=== PATIENT | male | born 1970 | race Caucasian/White ===

== ENCOUNTER 2023-12-17 20:55 | Inpatient (IN) | payer OTHER, SELFPAY ==
[2023-12-17 21:24] VITALS: BMI 19.1
[2023-12-17 21:26] VITALS: BP 159/97; PULSE 70; RESP 18; TEMP 36.9; O2SAT 97
[2023-12-17] MEDS: Gabapentin 600 MG TABLET PO (23:35)
[2023-12-17] MEDS: traZODone HCL 100 MG TABLET 300 MG PO (23:36)
[2023-12-17] MEDS: LORazepam 1 MG TABLET PO (23:36)
--- NOTE | 2023-12-18 03:25 | PC.ADMIT ---
Pt is a 53 year old male admitted to the unit after being transferred from [facility]. He arrived on the unit at 2109. Legal status: CV. Medical issues: pt denies. Substance use: pt reports daily alcohol use, 12 beers and a sleeve of nips, last drink was 12/15. He reports a long history of alcohol use, as well as detox admissions. Pt does report a history of withdrawal symptoms, but denies seizures. He also reports marijuana use, ?a couple of bowls?, approx. every other day with last use also being on . 12/15. Pt reports a history of cocaine use, but states he has not used in approx. 2 years. Precipitant: Pt reports that he has been feeling very depressed and anxious, and while intoxicated he tied the cord from his razor around his neck in an attempt to strangle himself and end his life. Per crisis eval, pt reported that he did lose consciousness. Pt?s [id number] called 911 to do a well-being check and he was found unconscious on his bathroom floor. Pt?s BAL upon arrival to the ED was 255, urine OB[place]ON was negative. Crisis eval stated that pt had also overtaken his prescription psychiatric meds while drinking alcohol prior to this incident; pt did not report this to TW. During admission assessment pt was pleasant and cooperative, appeared to be anxious and restless; pt stated that he felt that he was having some withdrawal symptoms. He stated that the attempt was impulsive, and he is glad that he was found and brought to the hospital. Pt does not identify any precipitant or trigger to his high levels of depression, stating that he has been feeling this way for some time. He denies any current or history of AH/VH, thought process logical and organized with no apparent evidence of psychosis. Denied any appetite disturbance, however did acknowledge issues with sleeping, both falling and staying asleep. Pt denied any SI/HI or self-harming thoughts at time of admission, agreed to seek out staff if needed. Skin check completed and appeared intact. Medications verified with pharmacy and patient, who reported being compliant with meds, however per pharmacy pt has not picked up meds since November and has some already filled at the pharmacy waiting to be picked up. Provider was notified of admission and orders obtained. Pt is on a CIWA q4 hr for alcohol withdrawal and prn ativan as appropriate per CIWA scores. Pt to remain on 5 min safety checks at this time.?
[2023-12-18 07:30] VITALS: BP 116/77; PULSE 63; RESP 14; TEMP 36.4; O2SAT 92
[2023-12-18 08:54] LABS: Estimated Average Glucose 82 mg/dL; Hemoglobin A1c % 4.5 % (<6.0)
[2023-12-18 09:08] LABS: Cholesterol 173 mg/dL (<200); HDL Cholesterol 73 mg/dL (>40); LDL Cholesterol Calculated 78 mg/dL (<100); Triglycerides 113 mg/dL (<150)
[2023-12-18 09:24] LABS: Free T4 (Free Thyroxine) 0.86 ng/dL (0.71-1.85); Thyroid Stimulating Hormone 1.63 uIU/mL (0.32-4.0)
[2023-12-18 09:37] LABS: Folate 7.9 ng/mL (> or = 4.0); Vitamin B12 305 pg/mL (200-900)
[2023-12-18] MEDS: buPROPion HCl XL 300 MG TAB.ER.24H PO (09:53)
[2023-12-18] MEDS: Multivitamin TABLET 1 TAB PO (09:53)
[2023-12-18] MEDS: Thiamine HCL 100 MG TABLET PO (09:54)
[2023-12-18] MEDS: Folic Acid 1 MG TABLET PO (09:54)
[2023-12-18] MEDS: Gabapentin 600 MG TABLET PO ×3 (09:54→22:57)
[2023-12-18] MEDS: FLUoxetine HCl 20 MG CAPSULE 40 MG PO (09:54)
[2023-12-18] MEDS: LORazepam 1 MG TABLET PO ×2 (09:57→21:24)
--- NOTE | 2023-12-18 10:22 | P.CONHOSP_ITS ---
History of Present Illness Data of Consult Service Date: 12/18/23 Primary Care Provider: Unknown Physician HPI Reason for consult: Medical H and P This is a 53-year-old male with pertinent history of cocaine use disorder, alcohol use disorder who was admitted to inpatient psych from [facility] after suicidal attempt. Patient states his last drink was Friday and he is still having symptoms of alcohol withdrawal including anxiety and tremors. No hallucinations. Patient denies any significant past medical history apart from mood disorder. His last cocaine use was 2 years ago. No chest pain, dyspnea, shortness of breath or any other complaints at this time. Review of Systems Constitutional: Constitutional: Reports no additional constitutional complaints Cardiovascular: Cardiovascular: Reports no additional cardiovascular complaints Respiratory: Respiratory: Reports no additional respiratory complaints Gastrointestinal: Gastrointestinal: Reports no additional gastrointestinal complaints Genitourinary: Genitourinary: Reports no additional male genitourinary complaints Neurologic: Reports tremor(s) Psychiatric: Psychiatric: Reports anxiety PMFSH Medical History Mood disorder Alcohol use disorder Pertinent family history: No family history of early CAD Social History Household Members: None Housing: Apartment Do you presently have visiting nurse or other home services: No Patient Tobacco Use Status: Current everyday Tobacco user Tobacco use type: Cigarette Cigarette Packs Per Day: 0.5 Cigarettes Per Day: 10.0 Smoked in Last 30 Days: Yes Patient Interested in Nicotine Replacement: Yes (lozenge) Patient Given Instructions on How to Stop Smoking: No Use of substances other than those prescribed or required for medical reasons: Yes Substance Use Type: Marijuana Substance Use Frequency: Daily Last Used Substance: Days (ago) Last Used Substance Other:: 12/16/2023 Currently Displaying Signs/Symptoms of Drug Intoxication Withdrawal: No (pt reports using approx. every other day ) Any prior treatment program specific to substance use: Yes Have you been hit, kicked, punched, or otherwise hurt by someone within the past year? If so, by whom?: No Do you feel safe in your current relationship?: No Current Relationship Is there a partner from a previous relationship who is making you feel unsafe now?: No Are you made to feel afraid or neglected: No Spiritual Healthcare Practices: none identified Pent[employer]ostal Healthcare Practices: none identified Cultural Healthcare Practices: none identified Advance Directives: No Advance Directives Information Provided: No Advance Directives on File: No Recently lost weight without trying: Unsure Eating poorly because of decreased appetite: No Nutrition Risks: No Nutritional Risk Poor oral hygiene: Yes Meds Allergies Allergy/AdvReac Type Severity Reaction Status Date / Time No Known Allergies Allergy Verified 12/18/23 00:17 Active Medications: Current Medications Acetaminophen (Acetaminophen 325 Mg Tablet) 650 mg PO Q6H PRN PRN Reason: Headache/Pain Mild Scale (1-3) Al Hydroxide/Mg Hydroxide (Magnesium Hydrox/Alum Hydrox 30 Ml Oral.Susp) 30 ml PO Q6H PRN PRN Reason: Heartburn/Nausea Bupropion HCl (Bupropion Hcl Xl 300 Mg Tab.Er.24h) 300 mg PO DAILY [facility] Last Admin: 12/18/23 09:53 Dose: 300 mg Fluoxetine HCl (Fluoxetine Hcl 20 Mg Capsule) 40 mg PO DAILY [facility] Last Admin: 12/18/23 09:54 Dose: 40 mg Folic Acid (Folic Acid 1 Mg Tablet) 1 mg PO DAILY [facility] Last Admin: 12/18/23 09:54 Dose: 1 mg Gabapentin (Gabapentin 600 Mg Tablet) 600 mg PO TID [facility] Last Admin: 12/18/23 09:54 Dose: 600 mg Hydroxyzine HCl (Hydroxyzine Hcl 25 Mg Tablet) 25 mg PO Q6H PRN PRN Reason: Anxiety Lorazepam (Lorazepam 1 Mg Tablet) 1 mg PO Q2H PRN PRN Reason: CIWA 6-10 Last Admin: 12/18/23 09:57 Dose: 1 mg Lorazepam (Lorazepam 1 Mg Tablet) 2 mg PO Q2H PRN PRN Reason: CIWA 11-15 Magnesium Hydroxide (Milk Of Magnesia 30 Ml Oral.Susp) 30 ml PO DAILY PRN PRN Reason: Constipation Multivitamins/Vitamin C (Multivitamin Tablet) 1 tab PO DAILY [facility] Last Admin: 12/18/23 09:53 Dose: 1 tab Nicotine (Nicotine 21 Mg Patch.Td24) 21 mg TRANSDERMA DAILY PRN PRN Reason: Nicotine Cravings Nicotine Polacrilex (Nicotine Polacrilex 2 Mg Gum) 4 mg BUCCAL Q2H PRN PRN Reason: Nicotine Cravings Thiamine HCl (Thiamine Hcl 100 Mg Tablet) 100 mg PO DAILY [facility] Last Admin: 12/18/23 09:54 Dose: 100 mg Trazodone HCl (Trazodone Hcl 100 Mg Tablet) 300 mg PO BEDTIME [facility] Last Admin: 12/17/23 23:36 Dose: 300 mg Home Medications ?Medication ?Instructions ?Recorded ?Confirmed ?Last Taken ?Type acamprosate 333 mg tablet,delayed 666 mg PO TID 12/17/23 12/17/23 Unknown History release bupropion HCl 300 mg 24 hr tablet, 300 mg PO DAILY 12/17/23 12/17/23 Unknown History extended release fluoxetine 20 mg capsule 40 mg PO DAILY 12/17/23 12/17/23 Unknown History gabapentin 600 mg tablet 600 mg PO TID 12/17/23 12/17/23 Unknown History trazodone 300 mg tablet 300 mg PO BEDTIME 12/17/23 12/17/23 12/16/23 History Physical Exam Vital Signs and Narrative: Vital Signs: Last Vital Signs Temp 97.5 F 12/18/23 07:30 Pulse 63 12/18/23 07:30 Resp 14 12/18/23 07:30 BP 116/77 12/18/23 07:30 Pulse Ox 92 12/18/23 07:30 O2 Del Method Room Air 12/18/23 07:30 BMI result Body Mass Index 19.1 Middle-aged male lying in bed in no distress Neck supple, no JVD Regular rate and rhythm, S1-S2 heard Regular breath sounds bilaterally, no wheezing or crackles appreciated Abdomen soft nontender, no guarding, no rigidity Patient is awake, alert and oriented to self, place, time and person ; no focal motor deficit Psych: Anxious No pedal edema Results Labs Labs: Laboratory Results - last 24 hr 12/18/23 08:27 Estimat Average Glucose 82 Hemoglobin A1c % 4.5 Magnesium 2.0 Triglycerides 113 Cholesterol 173 LDL Cholesterol, Calc 78 HDL Cholesterol 73 Vitamin B12 305 Folate 7.9 TSH 1.63 Free T4 0.86 Assessment and Plan (1) Alcohol use disorder: Status: Acute (2) Mood disorder: Status: Acute Plan This is a 53-year-old male with pertinent history of cocaine use disorder, alcohol use disorder who was admitted to inpatient psych from [facility] after suicidal attempt. #. Alcohol use disorder with concerns for withdrawal: Initiating phenobarb protocol. Is on thiamine and folic acid. Monitor CIWA #. Mood disorder: Continue home mood stabilizers. Optimization as per psych Patient is medically stable. Will sign off. Please call if we can help
[2023-12-18] MEDS: PHENobarbitaL 30 MG TABLET 120 MG PO (12:20)
--- NOTE | 2023-12-18 13:55 | HO.PSYADMNOT ---
HPI Date of Service: 12/18/23 Chief Complaint: unspec depressive dis, unspec. alcohol dis. Sources of Information: patient interviewed, chart reviewed and crisis/core team assessment reviewed HPI Subjective Notes: Samson Warning and Conditional Voluntary Narrative: Patient is a 53 year old male with hx of MDD, alcohol use d/o, and cocaine use d/o who presented to [facility] via ambulance d/t suicidal gesture secondary to overtaking his prescribed psychiatric medications, drinking alcohol and tying a cord around hi neck until he became unconscious. Per crisis report, patient's sister called for a wellness check. Upon arrival Sosa was found unconscious in his bathroom BAL to the ED was 255 on 12/16/23, patient did not require medical intervention. During crisis evaluation patient presented calm and cooperative and insightful regarding his need for recovery. Patient reported passive suicide ideation with no plan. This is patient's 1st inpatient psychiatric admission. Patient reports he has been drinking since the age of 13. He also reports past cocaine and heroin use. Utox positive for cannabinoids and alcohol. Patient is being evicted from his apartment on December 22 2023. During admission assessment, pt presents alert, oriented, calm and cooperative. Pt reports feeling depressed ; pt stated, I tried to commit suicide when I was drinking. Life sucks right now. I'm unemployed. I have no place to go. I got evicted from my apartment and I can't afford rent. I was drinking and felt good then I just wanted to end the cycle . Pt reports he is medication compliant and he feels like my meds help me but alcohol is the problem . Pt denies SI/HI/VH/AH. Pt reports he would like a referral to a substance abuse program; pt stated, I went to [facility] two years ago and I'd like to try to get into there again . Pt reports he began drinking daily a month ago (12 pack of beer and a sleeve a nips daily) d/t boredom but was sober for 9 months prior by just stopping cold turkey . pt denies hx of withdrawal seizures. Pt reports hx of cocaine use but has not used in 2 years; smoke marijuana daily. Pt reports this is his first inpatient psychiatric hospitalization; he reports he has been to detox 3 times; last detox was 2 years ago. Past Psychiatric History: 1st inpatient psychiatric admission; states he overdosed on his prescription medication 10 years ago but did not receive medical treatment. 3 detox admissions last one was 2 years ago. does not have a therapist outpatient prescriber: Ramiro Ramos NP Medical Evaluation Reviewed: Yes [facility] Medical History Mood disorder Alcohol use disorder Family History: denies Social History: Homeless, single, no children, finished 11th grade (did not obtain GED), unemployed. Substance History: hx of cocaine and heroin use. last used 2 years ago. Smokes marijuana daily. Drinking alcohol daily(12 pack of beer and sleeve of nips) for past month; was sober for 9 months prior. Trauma History: denies Diagnostics Vital Signs (24Hr): Vital Signs - 24 hr 12/17/23 21:26 12/18/23 07:30 Temperature 98.5 F 97.5 F Pulse Rate 70 63 Respiratory Rate 18 14 Blood Pressure 159/97 H 116/77 Pulse Oximetry 97 92 Oxygen Delivery Method Room Air Room Air BMI result Body Mass Index 19.1 Labs Labs: Laboratory Results - last 48 hr 12/18/23 08:27 Estimat Average Glucose 82 Hemoglobin A1c % 4.5 Magnesium 2.0 Triglycerides 113 Cholesterol 173 LDL Cholesterol, Calc 78 HDL Cholesterol 73 Vitamin B12 305 Folate 7.9 TSH 1.63 Free T4 0.86 Meds/Allergies Meds Home Medications ?Medication ?Instructions ?Recorded ?Confirmed ?Type acamprosate 333 mg tablet,delayed 666 mg PO TID 12/17/23 12/17/23 History release bupropion HCl 300 mg 24 hr tablet, 300 mg PO DAILY 12/17/23 12/17/23 History extended release fluoxetine 20 mg capsule 40 mg PO DAILY 12/17/23 12/17/23 History gabapentin 600 mg tablet 600 mg PO TID 12/17/23 12/17/23 History trazodone 300 mg tablet 300 mg PO BEDTIME 12/17/23 12/17/23 History Allergies Allergies Allergy/AdvReac Type Severity Reaction Status Date / Time No Known Allergies Allergy Verified 12/18/23 00:17 Mental Status Exam Mental Status Exam Narrative: Pt is alert and oriented; behavior is cooperative and calm; dressed in casual attire; mood is described as depressed ; eye contact appropriate; Speech is normal rate, volume and not pressured; thought process is organized and goal directed; Thought content is on tx; otherwise pertinent to relevant topics and without any delusional content, paranoid ideations or grandiosity; denies SI/HI/VH/AH. Assessment & Plan Assessment & Plan (1) MDD (major depressive disorder), recurrent episode: Status: Acute Code(s): F33.9 - Major depressive disorder, recurrent, unspecified (2) Alcohol use disorder: Status: Acute Code(s): F10.90 - Alcohol use, unspecified, uncomplicated Plan Patient is a 53 year old male with hx of MDD, alcohol use d/o, and cocaine use d/o who presented to [facility] via ambulance d/t suicidal gesture secondary to overtaking his prescribed psychiatric medications, drinking alcohol and tying a cord around hi neck until he became unconscious. Plan: CV 15 minute safety checks CIWA Continue home medications addiction medicine consult referral to substance abuse program referral to outpatient therapist encourage groups obtain collateral discharge planning Patient educated on: diagnosis, medication risk/benefits, substance abuse and therapeutic strategies Informed Consent: understands Reason for continued inpatient stay Substantial Risk for: harm to self and med/psych decompensation Statement Statement: I have reviewed the history and physical and performed a pertinent examination on my patient. No changes have occurred unless specified. If the History and Physical was not performed prior to admission, the Hospitalist's service will be consulted for completing the admission physical. Time Spent With Patient Time: Total time managing care of this patient today _60___ minutes.
[2023-12-18] MEDS: PHENobarbitaL 30 MG TABLET 60 MG PO (15:20)
[2023-12-18 20:19] VITALS: BP 111/70; PULSE 85; RESP 16; TEMP 36.4; O2SAT 97
[2023-12-18] MEDS: traZODone HCL 100 MG TABLET 300 MG PO (22:57)
[2023-12-18] MEDS: Acetaminophen 325 MG TABLET 650 MG PO (23:01)
[2023-12-19] MEDS: hydrOXYzine HCL 25 MG TABLET PO (04:12)
[2023-12-19] MEDS: LORazepam 1 MG TABLET PO ×3 (04:22→22:07)
--- NOTE | 2023-12-19 08:09 | P.PNPSI_ITS ---
Subjective Subjective Date of Service: 12/19/23 Reason For Visit: unspec depressive dis, unspec. alcohol dis. Subjective Notes: Conditional Voluntary Interim History: Reviewed with Dr. Mc. Pt reports feeling shitty today d/t withdrawal symptoms. Pt stated, I'm just having a lot of anxiety. Other than that I'm okay . Pt denies SI/HI/VH/AH. Keeping to self. Continue with CIWA and phenobarbital taper. Medication Compliance: Yes Side effects from medications: No Attending Groups: No Review of Systems Constitutional: Reports as per HPI Eyes: Reports as per HPI Reports as per HPI Cardiovascular: Reports as per HPI Respiratory: Reports as per HPI Gastrointestinal: Reports as per HPI Genitourinary: Reports as per HPI Musculoskeletal: Reports as per HPI Skin/Breast: Reports as per HPI Reports as per HPI Psychiatric: Reports as per HPI Endocrine: Reports as per HPI Hematologic/Lymphatic: Reports as per HPI Allergic/Immunologic: Reports as per HPI Mental Status Exam Mental Status Exam Narrative: Pt is alert and oriented; behavior is cooperative and calm; dressed in casual attire; mood is described as anxious ; eye contact appropriate; Speech is normal rate, volume and not pressured; thought process is organized and goal directed; Thought content is on tx; otherwise pertinent to relevant topics and without any delusional content, paranoid ideations or grandiosity; denies SI/HI/VH/AH. Diagnostics Vital Signs (24Hr): Vital Signs - 24 hr 12/18/23 20:19 Temperature 97.5 F Pulse Rate 85 Respiratory Rate 16 Blood Pressure 111/70 Pulse Oximetry 97 Oxygen Delivery Method Room Air BMI result Body Mass Index 19.1 Labs Labs: Laboratory Results - last 48 hr 12/18/23 08:27 Estimat Average Glucose 82 Hemoglobin A1c % 4.5 Magnesium 2.0 Triglycerides 113 Cholesterol 173 LDL Cholesterol, Calc 78 HDL Cholesterol 73 Vitamin B12 305 Folate 7.9 TSH 1.63 Free T4 0.86 Medications Medications Current Medications Acetaminophen (Acetaminophen 325 Mg Tablet) 650 mg PO Q6H PRN PRN Reason: Headache/Pain Mild Scale (1-3) Last Admin: 12/18/23 23:01 Dose: 650 mg Al Hydroxide/Mg Hydroxide (Magnesium Hydrox/Alum Hydrox 30 Ml Oral.Susp) 30 ml PO Q6H PRN PRN Reason: Heartburn/Nausea Bupropion HCl (Bupropion Hcl Xl 300 Mg Tab.Er.24h) 300 mg PO DAILY [facility] Last Admin: 12/18/23 09:53 Dose: 300 mg Fluoxetine HCl (Fluoxetine Hcl 20 Mg Capsule) 40 mg PO DAILY [facility] Last Admin: 12/18/23 09:54 Dose: 40 mg Folic Acid (Folic Acid 1 Mg Tablet) 1 mg PO DAILY [facility] Last Admin: 12/18/23 09:54 Dose: 1 mg Gabapentin (Gabapentin 600 Mg Tablet) 600 mg PO TID [facility] Last Admin: 12/18/23 22:57 Dose: 600 mg Hydroxyzine HCl (Hydroxyzine Hcl 25 Mg Tablet) 25 mg PO Q6H PRN PRN Reason: Anxiety Last Admin: 12/19/23 04:12 Dose: 25 mg Lorazepam (Lorazepam 1 Mg Tablet) 1 mg PO Q2H PRN PRN Reason: CIWA 6-10 Last Admin: 12/19/23 04:22 Dose: 1 mg Lorazepam (Lorazepam 1 Mg Tablet) 2 mg PO Q2H PRN PRN Reason: CIWA 11-15 Magnesium Hydroxide (Milk Of Magnesia 30 Ml Oral.Susp) 30 ml PO DAILY PRN PRN Reason: Constipation Multivitamins/Vitamin C (Multivitamin Tablet) 1 tab PO DAILY [facility] Last Admin: 12/18/23 09:53 Dose: 1 tab Nicotine (Nicotine 21 Mg Patch.Td24) 21 mg TRANSDERMA DAILY PRN PRN Reason: Nicotine Cravings Nicotine Polacrilex (Nicotine Polacrilex 2 Mg Gum) 4 mg BUCCAL Q2H PRN PRN Reason: Nicotine Cravings Pharmacy Consult (Consult Rx Etoh Phenob Im/Po) 1 each MISCELLANE ONCE PRN; Protocol PRN Reason: Consult order Phenobarbital (Phenobarbital 30 Mg Tablet) 60 mg PO BID [facility]; Protocol Stop: 12/20/23 21:01 Phenobarbital (Phenobarbital 15 Mg Tablet) 15 mg PO BID [facility]; Protocol Stop: 12/22/23 21:01 Phenobarbital (Phenobarbital 15 Mg Tablet) 15 mg PO DAILY [facility]; Protocol Stop: 12/24/23 09:01 Thiamine HCl (Thiamine Hcl 100 Mg Tablet) 100 mg PO DAILY [facility] Last Admin: 12/18/23 09:54 Dose: 100 mg Trazodone HCl (Trazodone Hcl 100 Mg Tablet) 300 mg PO BEDTIME [facility] Last Admin: 12/18/23 22:57 Dose: 300 mg Allergies Allergies Allergy/AdvReac Type Severity Reaction Status Date / Time No Known Allergies Allergy Verified 12/18/23 00:17 Assessment & Plan Assessment & Plan (1) MDD (major depressive disorder), recurrent episode: Status: Acute Code(s): F33.9 - Major depressive disorder, recurrent, unspecified (2) Alcohol use disorder: Status: Acute Code(s): F10.90 - Alcohol use, unspecified, uncomplicated Plan Patient is a 53 year old male with hx of MDD, alcohol use d/o, and cocaine use d/o who presented to [facility] via ambulance d/t suicidal gesture secondary to overtaking his prescribed psychiatric medications, drinking alcohol and tying a cord around hi neck until he became unconscious. Plan: CV 15 minute safety checks CIWA Continue home medications addiction medicine consult referral to substance abuse program referral to outpatient therapist encourage groups obtain collateral discharge planning 12/18: Pt reports feeling shitty today d/t withdrawal symptoms. Pt stated, I'm just having a lot of anxiety. Other than that I'm okay . Pt denies SI/HI/VH/AH. Keeping to self. Continue with CIWA and phenobarbital taper. Patient educated on: diagnosis, medication risk/benefits, substance abuse and therapeutic strategies Informed Consent: understands Reason for continued inpatient stay Substantial Risk for: med/psych decompensation Time Spent With Patient Time: Total time managing care of this patient today _20___ minutes.
[2023-12-19 08:25] VITALS: BP 127/61; PULSE 63; RESP 18; TEMP 36.4; O2SAT 98
[2023-12-19] MEDS: PHENobarbitaL 30 MG TABLET 60 MG PO ×2 (08:37→22:07)
[2023-12-19] MEDS: buPROPion HCl XL 300 MG TAB.ER.24H PO (08:37)
[2023-12-19] MEDS: Multivitamin TABLET 1 TAB PO (08:38)
[2023-12-19] MEDS: Thiamine HCL 100 MG TABLET PO (08:38)
[2023-12-19] MEDS: FLUoxetine HCl 20 MG CAPSULE 40 MG PO (08:38)
[2023-12-19] MEDS: Folic Acid 1 MG TABLET PO (08:38)
[2023-12-19] MEDS: Gabapentin 600 MG TABLET PO ×3 (08:38→22:05)
[2023-12-19 22:00] VITALS: BP 121/79; PULSE 73; RESP 16; TEMP 36.6; O2SAT 99
[2023-12-19] MEDS: traZODone HCL 100 MG TABLET 300 MG PO (22:06)
[2023-12-20] MEDS: hydrOXYzine HCL 25 MG TABLET PO (03:21)
[2023-12-20] MEDS: LORazepam 1 MG TABLET PO ×6 (03:39→23:57)
[2023-12-20 08:00] VITALS: BP 132/82; PULSE 64; RESP 18; TEMP 36.4; O2SAT 99
[2023-12-20] MEDS: Thiamine HCL 100 MG TABLET PO (08:34)
[2023-12-20] MEDS: PHENobarbitaL 30 MG TABLET 60 MG PO ×2 (08:34→21:34)
[2023-12-20] MEDS: FLUoxetine HCl 20 MG CAPSULE 40 MG PO (08:34)
[2023-12-20] MEDS: buPROPion HCl XL 300 MG TAB.ER.24H PO (08:35)
[2023-12-20] MEDS: Multivitamin TABLET 1 TAB PO (08:35)
[2023-12-20] MEDS: Gabapentin 600 MG TABLET PO ×3 (08:35→21:34)
[2023-12-20] MEDS: Folic Acid 1 MG TABLET PO (08:35)
--- NOTE | 2023-12-20 09:31 | HO.PSYCHPN ---
Subjective Subjective Date of Service: 12/20/23 Reason For Visit: unspec depressive dis, unspec. alcohol dis. Subjective Notes: Conditional Voluntary Interim History: Reviewed with Dr. Mc. Pt reports feeling okay today; pt stated, I'm just trying to nap because I didn't sleep too well last night . Pt denies SI/HI/VH/AH. Keeping to self. Continue with CIWA and phenobarbital taper. Medication Compliance: Yes Side effects from medications: No Attending Groups: Intermittent Review of Systems Constitutional: Reports as per HPI Eyes: Reports as per HPI Reports as per HPI Cardiovascular: Reports as per HPI Respiratory: Reports as per HPI Gastrointestinal: Reports as per HPI Genitourinary: Reports as per HPI Musculoskeletal: Reports as per HPI Skin/Breast: Reports as per HPI Reports as per HPI Psychiatric: Reports as per HPI Endocrine: Reports as per HPI Hematologic/Lymphatic: Reports as per HPI Allergic/Immunologic: Reports as per HPI Mental Status Exam Mental Status Exam Narrative: Pt is alert and oriented; behavior is cooperative and calm; dressed in casual attire; mood is described as okay ; eye contact appropriate; Speech is normal rate, volume and not pressured; thought process is organized and goal directed; Thought content is on tx; otherwise pertinent to relevant topics and without any delusional content, paranoid ideations or grandiosity; denies SI/HI/VH/AH. Diagnostics Vital Signs (24Hr): Vital Signs - 24 hr 12/19/23 22:00 12/20/23 08:00 Temperature 97.9 F 97.6 F Pulse Rate 73 64 Respiratory Rate 16 18 Blood Pressure 121/79 132/82 Pulse Oximetry 99 99 Oxygen Delivery Method Room Air Room Air BMI result Body Mass Index 19.1 Labs Labs: Laboratory Results - last 48 hr 12/18/23 08:27 Vitamin B12 305 Folate 7.9 Medications Medications Current Medications Acetaminophen (Acetaminophen 325 Mg Tablet) 650 mg PO Q6H PRN PRN Reason: Headache/Pain Mild Scale (1-3) Last Admin: 12/18/23 23:01 Dose: 650 mg Al Hydroxide/Mg Hydroxide (Magnesium Hydrox/Alum Hydrox 30 Ml Oral.Susp) 30 ml PO Q6H PRN PRN Reason: Heartburn/Nausea Bupropion HCl (Bupropion Hcl Xl 300 Mg Tab.Er.24h) 300 mg PO DAILY [facility] Last Admin: 12/20/23 08:35 Dose: 300 mg Fluoxetine HCl (Fluoxetine Hcl 20 Mg Capsule) 40 mg PO DAILY [facility] Last Admin: 12/20/23 08:34 Dose: 40 mg Folic Acid (Folic Acid 1 Mg Tablet) 1 mg PO DAILY [facility] Last Admin: 12/20/23 08:35 Dose: 1 mg Gabapentin (Gabapentin 600 Mg Tablet) 600 mg PO TID [facility] Last Admin: 12/20/23 08:35 Dose: 600 mg Hydroxyzine HCl (Hydroxyzine Hcl 25 Mg Tablet) 25 mg PO Q6H PRN PRN Reason: Anxiety Last Admin: 12/20/23 03:21 Dose: 25 mg Lorazepam (Lorazepam 1 Mg Tablet) 1 mg PO Q2H PRN PRN Reason: CIWA 6-10 Last Admin: 12/20/23 08:38 Dose: 1 mg Lorazepam (Lorazepam 1 Mg Tablet) 2 mg PO Q2H PRN PRN Reason: CIWA 11-15 Magnesium Hydroxide (Milk Of Magnesia 30 Ml Oral.Susp) 30 ml PO DAILY PRN PRN Reason: Constipation Multivitamins/Vitamin C (Multivitamin Tablet) 1 tab PO DAILY [facility] Last Admin: 12/20/23 08:35 Dose: 1 tab Nicotine (Nicotine 21 Mg Patch.Td24) 21 mg TRANSDERMA DAILY PRN PRN Reason: Nicotine Cravings Nicotine Polacrilex (Nicotine Polacrilex 2 Mg Gum) 4 mg BUCCAL Q2H PRN PRN Reason: Nicotine Cravings Pharmacy Consult (Consult Rx Etoh Phenob Im/Po) 1 each MISCELLANE ONCE PRN; Protocol PRN Reason: Consult order Phenobarbital (Phenobarbital 30 Mg Tablet) 60 mg PO BID [facility]; Protocol Stop: 12/20/23 21:01 Last Admin: 12/20/23 08:34 Dose: 60 mg Phenobarbital (Phenobarbital 15 Mg Tablet) 15 mg PO BID [facility]; Protocol Stop: 12/22/23 21:01 Phenobarbital (Phenobarbital 15 Mg Tablet) 15 mg PO DAILY [facility]; Protocol Stop: 12/24/23 09:01 Thiamine HCl (Thiamine Hcl 100 Mg Tablet) 100 mg PO DAILY [facility] Last Admin: 12/20/23 08:34 Dose: 100 mg Trazodone HCl (Trazodone Hcl 100 Mg Tablet) 300 mg PO BEDTIME [facility] Last Admin: 12/19/23 22:06 Dose: 300 mg Allergies Allergies Allergy/AdvReac Type Severity Reaction Status Date / Time No Known Allergies Allergy Verified 12/18/23 00:17 Assessment & Plan Assessment & Plan (1) MDD (major depressive disorder), recurrent episode: Status: Acute Code(s): F33.9 - Major depressive disorder, recurrent, unspecified (2) Alcohol use disorder: Status: Acute Code(s): F10.90 - Alcohol use, unspecified, uncomplicated Plan Patient is a 53 year old male with hx of MDD, alcohol use d/o, and cocaine use d/o who presented to [facility] via ambulance d/t suicidal gesture secondary to overtaking his prescribed psychiatric medications, drinking alcohol and tying a cord around hi neck until he became unconscious. Plan: CV 15 minute safety checks CIWA Continue home medications addiction medicine consult referral to substance abuse program referral to outpatient therapist encourage groups obtain collateral discharge planning 12/18: Pt reports feeling shitty today d/t withdrawal symptoms. Pt stated, I'm just having a lot of anxiety. Other than that I'm okay . Pt denies SI/HI/VH/AH. Keeping to self. Continue with CIWA and phenobarbital taper. 12/19: Pt reports feeling okay today; pt stated, I'm just trying to nap because I didn't sleep too well last night . Pt denies SI/HI/VH/AH. Keeping to self. Continue with CIWA and phenobarbital taper Patient educated on: diagnosis, medication risk/benefits, substance abuse and therapeutic strategies Informed Consent: understands Reason for continued inpatient stay Substantial Risk for: med/psych decompensation Time Spent With Patient Time: Total time managing care of this patient today _20___ minutes.
[2023-12-20] MEDS: Acetaminophen 325 MG TABLET 650 MG PO ×2 (14:40→23:57)
--- NOTE | 2023-12-20 14:43 | PC.NURSE ---
pt requested tylenol for generalized pain 12/16, re educated on pain scale
[2023-12-20] MEDS: Ondansetron ODT 8 MG TAB.RAPDIS TRANSLINGU (15:57)
--- NOTE | 2023-12-20 17:02 | PC.NURSE ---
pt c/o nausea r/t withdrawal sx, administered zofran PRN with some effect
[2023-12-20 20:00] VITALS: BP 126/69; PULSE 68; RESP 16; TEMP 36.6; O2SAT 97
[2023-12-20] MEDS: traZODone HCL 100 MG TABLET 300 MG PO (21:35)
[2023-12-21] MEDS: hydrOXYzine HCL 25 MG TABLET PO ×2 (03:55→12:29)
[2023-12-21] MEDS: LORazepam 1 MG TABLET PO ×4 (03:55→21:13)
[2023-12-21 07:55] VITALS: BP 108/69; PULSE 65; RESP 14; TEMP 36.5; O2SAT 94
[2023-12-21] MEDS: FLUoxetine HCl 20 MG CAPSULE 40 MG PO (08:06)
[2023-12-21] MEDS: buPROPion HCl XL 300 MG TAB.ER.24H PO (08:06)
[2023-12-21] MEDS: Thiamine HCL 100 MG TABLET PO (08:06)
[2023-12-21] MEDS: Folic Acid 1 MG TABLET PO (08:06)
[2023-12-21] MEDS: PHENobarbitaL 15 MG TABLET PO ×2 (08:07→21:13)
[2023-12-21] MEDS: Gabapentin 600 MG TABLET PO ×3 (08:07→21:14)
[2023-12-21] MEDS: Multivitamin TABLET 1 TAB PO (08:07)
[2023-12-21] MEDS: Ondansetron ODT 8 MG TAB.RAPDIS TRANSLINGU (08:08)
--- NOTE | 2023-12-21 09:03 | P.PNPSI_ITS ---
Subjective Subjective Date of Service: 12/21/23 Reason For Visit: unspec depressive dis, unspec. alcohol dis. Subjective Notes: Conditional Voluntary Interim History: Reviewed with Dr. Mc. Keeping to self. Pt reports feeling anxious and depressed today; pt stated, I'm feeling depressed about my situation and not knowing where to go. I'm going to call my sister . Pt denies SI/HI/VH/AH. DC CIWA. Continue phenobarbital taper. Start Ativan taper. Medication Compliance: Yes Side effects from medications: No Attending Groups: No Review of Systems Constitutional: Reports as per HPI Eyes: Reports as per HPI Reports as per HPI Cardiovascular: Reports as per HPI Respiratory: Reports as per HPI Gastrointestinal: Reports as per HPI Genitourinary: Reports as per HPI Musculoskeletal: Reports as per HPI Skin/Breast: Reports as per HPI Reports as per HPI Psychiatric: Reports as per HPI Endocrine: Reports as per HPI Hematologic/Lymphatic: Reports as per HPI Allergic/Immunologic: Reports as per HPI Mental Status Exam Mental Status Exam Narrative: Pt is alert and oriented; behavior is cooperative and calm; dressed in casual attire; mood is described as anxious and depressed ; eye contact appropriate; Speech is normal rate, volume and not pressured; thought process is organized and goal directed; Thought content is on tx; otherwise pertinent to relevant topics and without any delusional content, paranoid ideations or grandiosity; denies SI/HI/VH/AH. Diagnostics Vital Signs (24Hr): Vital Signs - 24 hr 12/20/23 20:00 12/21/23 07:55 Temperature 97.8 F 97.7 F Pulse Rate 68 65 Respiratory Rate 16 14 Blood Pressure 126/69 108/69 Pulse Oximetry 97 94 Oxygen Delivery Method Room Air Room Air BMI result Body Mass Index 19.1 Medications Medications Current Medications Acetaminophen (Acetaminophen 325 Mg Tablet) 650 mg PO Q6H PRN PRN Reason: Headache/Pain Mild Scale (1-3) Last Admin: 12/20/23 23:57 Dose: 650 mg Al Hydroxide/Mg Hydroxide (Magnesium Hydrox/Alum Hydrox 30 Ml Oral.Susp) 30 ml PO Q6H PRN PRN Reason: Heartburn/Nausea Bupropion HCl (Bupropion Hcl Xl 300 Mg Tab.Er.24h) 300 mg PO DAILY [facility] Last Admin: 12/21/23 08:06 Dose: 300 mg Fluoxetine HCl (Fluoxetine Hcl 20 Mg Capsule) 40 mg PO DAILY [facility] Last Admin: 12/21/23 08:06 Dose: 40 mg Folic Acid (Folic Acid 1 Mg Tablet) 1 mg PO DAILY [facility] Last Admin: 12/21/23 08:06 Dose: 1 mg Gabapentin (Gabapentin 600 Mg Tablet) 600 mg PO TID [facility] Last Admin: 12/21/23 08:07 Dose: 600 mg Hydroxyzine HCl (Hydroxyzine Hcl 25 Mg Tablet) 25 mg PO Q6H PRN PRN Reason: Anxiety Last Admin: 12/21/23 03:55 Dose: 25 mg Lorazepam (Lorazepam 1 Mg Tablet) 1 mg PO Q2H PRN PRN Reason: CIWA 6-10 Last Admin: 12/21/23 08:08 Dose: 1 mg Lorazepam (Lorazepam 1 Mg Tablet) 2 mg PO Q2H PRN PRN Reason: CIWA 11-15 Magnesium Hydroxide (Milk Of Magnesia 30 Ml Oral.Susp) 30 ml PO DAILY PRN PRN Reason: Constipation Multivitamins/Vitamin C (Multivitamin Tablet) 1 tab PO DAILY [facility] Last Admin: 12/21/23 08:07 Dose: 1 tab Nicotine (Nicotine 21 Mg Patch.Td24) 21 mg TRANSDERMA DAILY PRN PRN Reason: Nicotine Cravings Nicotine Polacrilex (Nicotine Polacrilex 2 Mg Gum) 4 mg BUCCAL Q2H PRN PRN Reason: Nicotine Cravings Ondansetron HCl (Ondansetron Odt 8 Mg Tab.Rapdis) 8 mg TRANSLINGU Q8H PRN PRN Reason: Nausea and Vomiting Last Admin: 12/21/23 08:08 Dose: 8 mg Pharmacy Consult (Consult Rx Etoh Phenob Im/Po) 1 each MISCELLANE ONCE PRN; Protocol PRN Reason: Consult order Phenobarbital (Phenobarbital 15 Mg Tablet) 15 mg PO BID [facility]; Protocol Stop: 12/22/23 21:01 Last Admin: 12/21/23 08:07 Dose: 15 mg Phenobarbital (Phenobarbital 15 Mg Tablet) 15 mg PO DAILY [facility]; Protocol Stop: 12/24/23 09:01 Thiamine HCl (Thiamine Hcl 100 Mg Tablet) 100 mg PO DAILY [facility] Last Admin: 12/21/23 08:06 Dose: 100 mg Trazodone HCl (Trazodone Hcl 100 Mg Tablet) 300 mg PO BEDTIME [facility] Last Admin: 12/20/23 21:35 Dose: 300 mg Allergies Allergies Allergy/AdvReac Type Severity Reaction Status Date / Time No Known Allergies Allergy Verified 12/18/23 00:17 Assessment & Plan Assessment & Plan (1) MDD (major depressive disorder), recurrent episode: Status: Acute Code(s): F33.9 - Major depressive disorder, recurrent, unspecified (2) Alcohol use disorder: Status: Acute Code(s): F10.90 - Alcohol use, unspecified, uncomplicated Plan Patient is a 53 year old male with hx of MDD, alcohol use d/o, and cocaine use d/o who presented to [facility] via ambulance d/t suicidal gesture secondary to overtaking his prescribed psychiatric medications, drinking alcohol and tying a cord around hi neck until he became unconscious. Plan: CV 15 minute safety checks CIWA Continue home medications addiction medicine consult referral to substance abuse program referral to outpatient therapist encourage groups obtain collateral discharge planning 12/18: Pt reports feeling shitty today d/t withdrawal symptoms. Pt stated, I'm just having a lot of anxiety. Other than that I'm okay . Pt denies SI/HI/VH/AH. Keeping to self. Continue with CIWA and phenobarbital taper. 12/19: Pt reports feeling okay today; pt stated, I'm just trying to nap because I didn't sleep too well last night . Pt denies SI/HI/VH/AH. Keeping to self. Continue with CIWA and phenobarbital taper 12/20: Keeping to self. Pt reports feeling anxious and depressed today; pt stated, I'm feeling depressed about my situation and not knowing where to go. I'm going to call my sister . Pt denies SI/HI/VH/AH. DC CIWA. Continue phenobarbital taper. Start Ativan taper. Patient educated on: diagnosis, medication risk/benefits, substance abuse and therapeutic strategies Informed Consent: understands Reason for continued inpatient stay Substantial Risk for: med/psych decompensation Time Spent With Patient Time: Total time managing care of this patient today _20___ minutes.
--- NOTE | 2023-12-21 10:31 | MHC.RECOVRN ---
Pt had positive screen for unhealthy alcohol use on admission, subsequently met with t/w to discuss alcohol use and recovery supports/options. Pt voices concern regarding alcohol use and is aware that drinking at unhealthy levels is known to increase risk of alcohol related health problems although does not recognize any health issues within himself. Pt reports he drinks both beer and liquor and could not specifically quantify or provide length of use. Pt expresses how alcohol use has impacted health, including negative impact on relationships and housing. Discussed risk reduction strategies including drinking below the recommended limit. Provided pt with written resources including information on inpatient and outpatient treatment, [facility], harm reduction, and recovery coaching. Pt plans to start Naltrexone and f/u in [facility] Pt provided with t/w contact information if questions or concerns arise. Denies other questions or concerns at this time. Report to pt?s nurse Jeanette as well as [facility] nurse Margarita and recommendations to start Naltrexone will be given once pt is done with his phenobarbital taper.
[2023-12-21 19:58] VITALS: BP 127/76; PULSE 75; RESP 16; TEMP 36.6; O2SAT 96
[2023-12-21] MEDS: traZODone HCL 100 MG TABLET 300 MG PO (21:13)
[2023-12-22] MEDS: hydrOXYzine HCL 25 MG TABLET PO (03:01)
[2023-12-22 07:50] VITALS: BP 91/55; PULSE 63; RESP 14; TEMP 36.9; O2SAT 96
[2023-12-22] MEDS: FLUoxetine HCl 20 MG CAPSULE 40 MG PO (08:39)
[2023-12-22] MEDS: LORazepam 1 MG TABLET PO ×3 (08:40→21:11)
[2023-12-22] MEDS: Folic Acid 1 MG TABLET PO (08:40)
[2023-12-22] MEDS: Multivitamin TABLET 1 TAB PO (08:40)
[2023-12-22] MEDS: buPROPion HCl XL 300 MG TAB.ER.24H PO (08:40)
[2023-12-22] MEDS: Thiamine HCL 100 MG TABLET PO (08:40)
[2023-12-22] MEDS: PHENobarbitaL 15 MG TABLET PO ×2 (08:42→21:11)
[2023-12-22] MEDS: Gabapentin 600 MG TABLET PO ×3 (09:16→21:11)
--- NOTE | 2023-12-22 10:05 | P.PNPSI_ITS ---
Subjective Subjective Date of Service: 12/22/23 Reason For Visit: unspec depressive dis, unspec. alcohol dis. Subjective Notes: Conditional Voluntary Interim History: Reviewed with Dr. Mc. Pt continues to report feeling anxious and depressed today; pt stated, I'm just worried about where I'm going to go and whats doing to happen . Pt denies SI/HI/VH/AH. Medication Compliance: Yes Side effects from medications: No Attending Groups: No Review of Systems Constitutional: Reports as per HPI Eyes: Reports as per HPI Reports as per HPI Cardiovascular: Reports as per HPI Respiratory: Reports as per HPI Gastrointestinal: Reports as per HPI Genitourinary: Reports as per HPI Musculoskeletal: Reports as per HPI Skin/Breast: Reports as per HPI Reports as per HPI Psychiatric: Reports as per HPI Endocrine: Reports as per HPI Hematologic/Lymphatic: Reports as per HPI Allergic/Immunologic: Reports as per HPI Mental Status Exam Mental Status Exam Narrative: Pt is alert and oriented; behavior is cooperative and calm; dressed in casual attire; mood is described as anxious and depressed ; eye contact appropriate; Speech is normal rate, volume and not pressured; thought process is organized and goal directed; Thought content is on tx; otherwise pertinent to relevant topics and without any delusional content, paranoid ideations or grandiosity; denies SI/HI/VH/AH. Diagnostics Vital Signs (24Hr): Vital Signs - 24 hr 12/21/23 19:58 12/22/23 07:50 Temperature 97.9 F 98.4 F Pulse Rate 75 63 Respiratory Rate 16 14 Blood Pressure 127/76 91/55 L Pulse Oximetry 96 96 Oxygen Delivery Method Room Air Room Air BMI result Body Mass Index 19.1 Medications Medications Current Medications Acetaminophen (Acetaminophen 325 Mg Tablet) 650 mg PO Q6H PRN PRN Reason: Headache/Pain Mild Scale (1-3) Last Admin: 12/20/23 23:57 Dose: 650 mg Al Hydroxide/Mg Hydroxide (Magnesium Hydrox/Alum Hydrox 30 Ml Oral.Susp) 30 ml PO Q6H PRN PRN Reason: Heartburn/Nausea Bupropion HCl (Bupropion Hcl Xl 300 Mg Tab.Er.24h) 300 mg PO DAILY [facility] Last Admin: 12/22/23 08:40 Dose: 300 mg Fluoxetine HCl (Fluoxetine Hcl 20 Mg Capsule) 40 mg PO DAILY [facility] Last Admin: 12/22/23 08:39 Dose: 40 mg Folic Acid (Folic Acid 1 Mg Tablet) 1 mg PO DAILY [facility] Last Admin: 12/22/23 08:40 Dose: 1 mg Gabapentin (Gabapentin 600 Mg Tablet) 600 mg PO TID [facility] Last Admin: 12/22/23 09:16 Dose: 600 mg Hydroxyzine HCl (Hydroxyzine Hcl 25 Mg Tablet) 25 mg PO Q6H PRN PRN Reason: Anxiety Last Admin: 12/22/23 03:01 Dose: 25 mg Lorazepam (Lorazepam 1 Mg Tablet) 1 mg PO TID [facility] Last Admin: 12/22/23 08:40 Dose: 1 mg Magnesium Hydroxide (Milk Of Magnesia 30 Ml Oral.Susp) 30 ml PO DAILY PRN PRN Reason: Constipation Multivitamins/Vitamin C (Multivitamin Tablet) 1 tab PO DAILY [facility] Last Admin: 12/22/23 08:40 Dose: 1 tab Nicotine (Nicotine 21 Mg Patch.Td24) 21 mg TRANSDERMA DAILY PRN PRN Reason: Nicotine Cravings Nicotine Polacrilex (Nicotine Polacrilex 2 Mg Gum) 4 mg BUCCAL Q2H PRN PRN Reason: Nicotine Cravings Ondansetron HCl (Ondansetron Odt 8 Mg Tab.Rapdis) 8 mg TRANSLINGU Q8H PRN PRN Reason: Nausea and Vomiting Last Admin: 12/21/23 08:08 Dose: 8 mg Pharmacy Consult (Consult Rx Etoh Phenob Im/Po) 1 each MISCELLANE ONCE [facility]; Protocol PRN Reason: Consult order Phenobarbital (Phenobarbital 15 Mg Tablet) 15 mg PO BID [facility]; Protocol Stop: 12/22/23 21:01 Last Admin: 12/22/23 08:42 Dose: 15 mg Phenobarbital (Phenobarbital 15 Mg Tablet) 15 mg PO DAILY [facility]; Protocol Stop: 12/24/23 09:01 Thiamine HCl (Thiamine Hcl 100 Mg Tablet) 100 mg PO DAILY [facility] Last Admin: 12/22/23 08:40 Dose: 100 mg Trazodone HCl (Trazodone Hcl 100 Mg Tablet) 300 mg PO BEDTIME [facility] Last Admin: 12/21/23 21:13 Dose: 300 mg Allergies Allergies Allergy/AdvReac Type Severity Reaction Status Date / Time No Known Allergies Allergy Verified 12/18/23 00:17 Assessment & Plan Assessment & Plan (1) MDD (major depressive disorder), recurrent episode: Status: Acute Code(s): F33.9 - Major depressive disorder, recurrent, unspecified (2) Alcohol use disorder: Status: Acute Code(s): F10.90 - Alcohol use, unspecified, uncomplicated Plan Patient is a 53 year old male with hx of MDD, alcohol use d/o, and cocaine use d/o who presented to [facility] via ambulance d/t suicidal gesture secondary to overtaking his prescribed psychiatric medications, drinking alcohol and tying a cord around hi neck until he became unconscious. Plan: CV 15 minute safety checks CIWA Continue home medications addiction medicine consult referral to substance abuse program referral to outpatient therapist encourage groups obtain collateral discharge planning 12/18: Pt reports feeling shitty today d/t withdrawal symptoms. Pt stated, I'm just having a lot of anxiety. Other than that I'm okay . Pt denies SI/HI/VH/AH. Keeping to self. Continue with CIWA and phenobarbital taper. 12/19: Pt reports feeling okay today; pt stated, I'm just trying to nap because I didn't sleep too well last night . Pt denies SI/HI/VH/AH. Keeping to self. Continue with CIWA and phenobarbital taper 12/20: Keeping to self. Pt reports feeling anxious and depressed today; pt stated, I'm feeling depressed about my situation and not knowing where to go. I'm going to call my sister . Pt denies SI/HI/VH/AH. DC CIWA. Continue phenobarbital taper. Start Ativan taper. 12/21: Pt continues to report feeling anxious and depressed today; pt stated, I'm just worried about where I'm going to go and whats doing to happen . Pt denies SI/HI/VH/AH. Patient educated on: diagnosis, medication risk/benefits, substance abuse and therapeutic strategies Informed Consent: understands Reason for continued inpatient stay Substantial Risk for: med/psych decompensation Time Spent With Patient Time: Total time managing care of this patient today _20___ minutes.
[2023-12-22] MEDS: Nicotine 21 MG PATCH.TD24 TRANSDERMA (14:16)
[2023-12-22 21:00] VITALS: BP 110/57; PULSE 69; RESP 16; TEMP 36.6; O2SAT 97
[2023-12-22] MEDS: traZODone HCL 100 MG TABLET 300 MG PO (21:11)
[2023-12-22] MEDS: Acetaminophen 325 MG TABLET 650 MG PO (21:13)
[2023-12-23 07:25] VITALS: BP 101/65; PULSE 60; RESP 16; TEMP 36.3; O2SAT 96
[2023-12-23] MEDS: FLUoxetine HCl 20 MG CAPSULE 40 MG PO (08:48)
[2023-12-23] MEDS: Gabapentin 600 MG TABLET PO ×3 (08:49→21:23)
[2023-12-23] MEDS: buPROPion HCl XL 300 MG TAB.ER.24H PO (08:49)
[2023-12-23] MEDS: Folic Acid 1 MG TABLET PO (08:52)
[2023-12-23] MEDS: Multivitamin TABLET 1 TAB PO (08:52)
[2023-12-23] MEDS: LORazepam 1 MG TABLET PO ×2 (08:52→21:23)
[2023-12-23] MEDS: Thiamine HCL 100 MG TABLET PO (08:52)
[2023-12-23] MEDS: Nicotine 21 MG PATCH.TD24 TRANSDERMA (08:53)
[2023-12-23] MEDS: PHENobarbitaL 15 MG TABLET PO (09:01)
--- NOTE | 2023-12-23 13:39 | HO.PSYCHPN ---
Subjective Subjective Date of Service: 12/23/23 Reason For Visit: unspec depressive dis, unspec. alcohol dis. Subjective Notes: Conditional Voluntary Interim History: Reviewed with Dr. Mc. Active on unit, social with peers. attending groups. Pt continues to report feeling anxious today; pt stated, I'm waiting to hear if I got into the [facility] . Pt denies SI/HI/VH/AH. Medication Compliance: Yes Side effects from medications: No Attending Groups: Yes Review of Systems Constitutional: Reports as per HPI Eyes: Reports as per HPI Reports as per HPI Cardiovascular: Reports as per HPI Respiratory: Reports as per HPI Gastrointestinal: Reports as per HPI Genitourinary: Reports as per HPI Musculoskeletal: Reports as per HPI Skin/Breast: Reports as per HPI Reports as per HPI Psychiatric: Reports as per HPI Endocrine: Reports as per HPI Hematologic/Lymphatic: Reports as per HPI Allergic/Immunologic: Reports as per HPI Mental Status Exam Mental Status Exam Narrative: Pt is alert and oriented; behavior is cooperative and calm; dressed in casual attire; mood is described as anxious ; eye contact appropriate; Speech is normal rate, volume and not pressured; thought process is organized and goal directed; Thought content is on tx; otherwise pertinent to relevant topics and without any delusional content, paranoid ideations or grandiosity; denies SI/HI/VH/AH. Diagnostics Vital Signs (24Hr): Vital Signs - 24 hr 12/22/23 21:00 12/23/23 07:25 Temperature 97.9 F 97.4 F Pulse Rate 69 60 Respiratory Rate 16 16 Blood Pressure 110/57 L 101/65 Pulse Oximetry 97 96 Oxygen Delivery Method Room Air Room Air BMI result Body Mass Index 19.1 Medications Medications Current Medications Acetaminophen (Acetaminophen 325 Mg Tablet) 650 mg PO Q6H PRN PRN Reason: Headache/Pain Mild Scale (1-3) Last Admin: 12/22/23 21:13 Dose: 650 mg Al Hydroxide/Mg Hydroxide (Magnesium Hydrox/Alum Hydrox 30 Ml Oral.Susp) 30 ml PO Q6H PRN PRN Reason: Heartburn/Nausea Bupropion HCl (Bupropion Hcl Xl 300 Mg Tab.Er.24h) 300 mg PO DAILY [facility] Last Admin: 12/23/23 08:49 Dose: 300 mg Fluoxetine HCl (Fluoxetine Hcl 20 Mg Capsule) 40 mg PO DAILY [facility] Last Admin: 12/23/23 08:48 Dose: 40 mg Folic Acid (Folic Acid 1 Mg Tablet) 1 mg PO DAILY [facility] Last Admin: 12/23/23 08:52 Dose: 1 mg Gabapentin (Gabapentin 600 Mg Tablet) 600 mg PO TID [facility] Last Admin: 12/23/23 08:49 Dose: 600 mg Hydroxyzine HCl (Hydroxyzine Hcl 25 Mg Tablet) 25 mg PO Q6H PRN PRN Reason: Anxiety Last Admin: 12/22/23 03:01 Dose: 25 mg Lorazepam (Lorazepam 1 Mg Tablet) 1 mg PO BID [facility] Last Admin: 12/23/23 08:52 Dose: 1 mg Magnesium Hydroxide (Milk Of Magnesia 30 Ml Oral.Susp) 30 ml PO DAILY PRN PRN Reason: Constipation Multivitamins/Vitamin C (Multivitamin Tablet) 1 tab PO DAILY [facility] Last Admin: 12/23/23 08:52 Dose: 1 tab Nicotine (Nicotine 21 Mg Patch.Td24) 21 mg TRANSDERMA DAILY PRN PRN Reason: Nicotine Cravings Last Admin: 12/23/23 08:53 Dose: 21 mg Nicotine Polacrilex (Nicotine Polacrilex 2 Mg Gum) 4 mg BUCCAL Q2H PRN PRN Reason: Nicotine Cravings Ondansetron HCl (Ondansetron Odt 8 Mg Tab.Rapdis) 8 mg TRANSLINGU Q8H PRN PRN Reason: Nausea and Vomiting Last Admin: 12/21/23 08:08 Dose: 8 mg Pharmacy Consult (Consult Rx Etoh Phenob Im/Po) 1 each MISCELLANE ONCE PRN; Protocol PRN Reason: Consult order Phenobarbital (Phenobarbital 15 Mg Tablet) 15 mg PO DAILY [facility]; Protocol Stop: 12/24/23 09:01 Last Admin: 12/23/23 09:01 Dose: 15 mg Thiamine HCl (Thiamine Hcl 100 Mg Tablet) 100 mg PO DAILY [facility] Last Admin: 12/23/23 08:52 Dose: 100 mg Trazodone HCl (Trazodone Hcl 100 Mg Tablet) 300 mg PO BEDTIME [facility] Last Admin: 12/22/23 21:11 Dose: 300 mg Allergies Allergies Allergy/AdvReac Type Severity Reaction Status Date / Time No Known Allergies Allergy Verified 12/18/23 00:17 Assessment & Plan Assessment & Plan (1) MDD (major depressive disorder), recurrent episode: Status: Acute Code(s): F33.9 - Major depressive disorder, recurrent, unspecified (2) Alcohol use disorder: Status: Acute Code(s): F10.90 - Alcohol use, unspecified, uncomplicated Plan Patient is a 53 year old male with hx of MDD, alcohol use d/o, and cocaine use d/o who presented to [facility] via ambulance d/t suicidal gesture secondary to overtaking his prescribed psychiatric medications, drinking alcohol and tying a cord around hi neck until he became unconscious. Plan: CV 15 minute safety checks CIWA Continue home medications addiction medicine consult referral to substance abuse program referral to outpatient therapist encourage groups obtain collateral discharge planning 12/18: Pt reports feeling shitty today d/t withdrawal symptoms. Pt stated, I'm just having a lot of anxiety. Other than that I'm okay . Pt denies SI/HI/VH/AH. Keeping to self. Continue with CIWA and phenobarbital taper. 12/19: Pt reports feeling okay today; pt stated, I'm just trying to nap because I didn't sleep too well last night . Pt denies SI/HI/VH/AH. Keeping to self. Continue with CIWA and phenobarbital taper 12/20: Keeping to self. Pt reports feeling anxious and depressed today; pt stated, I'm feeling depressed about my situation and not knowing where to go. I'm going to call my sister . Pt denies SI/HI/VH/AH. DC CIWA. Continue phenobarbital taper. Start Ativan taper. 12/21: Pt continues to report feeling anxious and depressed today; pt stated, I'm just worried about where I'm going to go and whats doing to happen . Pt denies SI/HI/VH/AH. 12/22: Active on unit, social with peers. attending groups. Pt continues to report feeling anxious today; pt stated, I'm waiting to hear if I got into the [facility] . Pt denies SI/HI/VH/AH. Continue current tx plan. Patient educated on: diagnosis, medication risk/benefits, substance abuse and therapeutic strategies Reason for continued inpatient stay Substantial Risk for: med/psych decompensation Time Spent With Patient Time: Total time managing care of this patient today _20___ minutes.
[2023-12-23 21:01] VITALS: BP 99/65; PULSE 67; RESP 16; TEMP 37.1; O2SAT 98
[2023-12-23] MEDS: traZODone HCL 100 MG TABLET 300 MG PO (21:23)
[2023-12-24 07:46] VITALS: BP 86/53; PULSE 56; RESP 16; TEMP 36.4; O2SAT 98
--- NOTE | 2023-12-24 08:18 | P.PNPSI_ITS ---
Subjective Subjective Date of Service: 12/24/23 Reason For Visit: unspec depressive dis, unspec. alcohol dis. Subjective Notes: Conditional Voluntary Interim History: Reviewed with Dr. Mc. Active on unit, social with peers. attending groups. Pt continues to report feeling alright today; pt continues to be worried about where he will go after discharge. Pt denies SI/HI/VH/AH. Pt reports sleeping and eating well. Medication Compliance: Yes Side effects from medications: No Attending Groups: Yes Review of Systems Constitutional: Reports as per HPI Eyes: Reports as per HPI Reports as per HPI Cardiovascular: Reports as per HPI Respiratory: Reports as per HPI Gastrointestinal: Reports as per HPI Genitourinary: Reports as per HPI Musculoskeletal: Reports as per HPI Skin/Breast: Reports as per HPI Reports as per HPI Psychiatric: Reports as per HPI Endocrine: Reports as per HPI Hematologic/Lymphatic: Reports as per HPI Allergic/Immunologic: Reports as per HPI Mental Status Exam Mental Status Exam Narrative: Pt is alert and oriented; behavior is cooperative and calm; dressed in casual attire; mood is described as alright ; eye contact appropriate; Speech is nor mal rate, volume and not pressured; thought process is organized and goal directed; Thought content is on tx; otherwise pertinent to relevant topics and without any delusional content, paranoid ideations or grandiosity; denies SI/HI/VH/AH. Diagnostics Vital Signs (24Hr): Vital Signs - 24 hr 12/23/23 21:01 12/24/23 07:46 Temperature 98.7 F 97.5 F Pulse Rate 67 56 Respiratory Rate 16 16 Blood Pressure 99/65 86/53 L Pulse Oximetry 98 98 Oxygen Delivery Method Room Air Room Air BMI result Body Mass Index 19.1 Medications Medications Current Medications Acetaminophen (Acetaminophen 325 Mg Tablet) 650 mg PO Q6H PRN PRN Reason: Headache/Pain Mild Scale (1-3) Last Admin: 12/22/23 21:13 Dose: 650 mg Al Hydroxide/Mg Hydroxide (Magnesium Hydrox/Alum Hydrox 30 Ml Oral.Susp) 30 ml PO Q6H PRN PRN Reason: Heartburn/Nausea Bupropion HCl (Bupropion Hcl Xl 300 Mg Tab.Er.24h) 300 mg PO DAILY [facility] Last Admin: 12/23/23 08:49 Dose: 300 mg Fluoxetine HCl (Fluoxetine Hcl 20 Mg Capsule) 40 mg PO DAILY [facility] Last Admin: 12/23/23 08:48 Dose: 40 mg Folic Acid (Folic Acid 1 Mg Tablet) 1 mg PO DAILY [facility] Last Admin: 12/23/23 08:52 Dose: 1 mg Gabapentin (Gabapentin 600 Mg Tablet) 600 mg PO TID [facility] Last Admin: 12/23/23 21:23 Dose: 600 mg Hydroxyzine HCl (Hydroxyzine Hcl 25 Mg Tablet) 25 mg PO Q6H PRN PRN Reason: Anxiety Last Admin: 12/22/23 03:01 Dose: 25 mg Lorazepam (Lorazepam 1 Mg Tablet) 1 mg PO BID [facility] Stop: 12/24/23 23:00 Last Admin: 12/23/23 21:23 Dose: 1 mg Lorazepam (Lorazepam 0.5 Mg Tablet) 0.5 mg PO BID [facility] Stop: 12/26/23 23:00 Magnesium Hydroxide (Milk Of Magnesia 30 Ml Oral.Susp) 30 ml PO DAILY PRN PRN Reason: Constipation Multivitamins/Vitamin C (Multivitamin Tablet) 1 tab PO DAILY [facility] Last Admin: 12/23/23 08:52 Dose: 1 tab Nicotine (Nicotine 21 Mg Patch.Td24) 21 mg TRANSDERMA DAILY PRN PRN Reason: Nicotine Cravings Last Admin: 12/23/23 08:53 Dose: 21 mg Nicotine Polacrilex (Nicotine Polacrilex 2 Mg Gum) 4 mg BUCCAL Q2H PRN PRN Reason: Nicotine Cravings Ondansetron HCl (Ondansetron Odt 8 Mg Tab.Rapdis) 8 mg TRANSLINGU Q8H PRN PRN Reason: Nausea and Vomiting Last Admin: 12/21/23 08:08 Dose: 8 mg Pharmacy Consult (Consult Rx Etoh Phenob Im/Po) 1 each MISCELLANE ONCE PRN; Protocol PRN Reason: Consult order Phenobarbital (Phenobarbital 15 Mg Tablet) 15 mg PO DAILY [facility]; Protocol Stop: 12/24/23 09:01 Last Admin: 12/23/23 09:01 Dose: 15 mg Thiamine HCl (Thiamine Hcl 100 Mg Tablet) 100 mg PO DAILY [facility] Last Admin: 12/23/23 08:52 Dose: 100 mg Trazodone HCl (Trazodone Hcl 100 Mg Tablet) 300 mg PO BEDTIME [facility] Last Admin: 12/23/23 21:23 Dose: 300 mg Allergies Allergies Allergy/AdvReac Type Severity Reaction Status Date / Time No Known Allergies Allergy Verified 12/18/23 00:17 Assessment & Plan Assessment & Plan (1) MDD (major depressive disorder), recurrent episode: Status: Acute Code(s): F33.9 - Major depressive disorder, recurrent, unspecified (2) Alcohol use disorder: Status: Acute Code(s): F10.90 - Alcohol use, unspecified, uncomplicated Plan Patient is a 53 year old male with hx of MDD, alcohol use d/o, and cocaine use d/o who presented to [facility] via ambulance d/t suicidal gesture secondary to overtaking his prescribed psychiatric medications, drinking alcohol and tying a cord around hi neck until he became unconscious. Plan: CV 15 minute safety checks CIWA Continue home medications addiction medicine consult referral to substance abuse program referral to outpatient therapist encourage groups obtain collateral discharge planning 12/18: Pt reports feeling shitty today d/t withdrawal symptoms. Pt stated, I'm just having a lot of anxiety. Other than that I'm okay . Pt denies SI/HI/VH/AH. Keeping to self. Continue with CIWA and phenobarbital taper. 12/19: Pt reports feeling okay today; pt stated, I'm just trying to nap because I didn't sleep too well last night . Pt denies SI/HI/VH/AH. Keeping to self. Continue with CIWA and phenobarbital taper 12/20: Keeping to self. Pt reports feeling anxious and depressed today; pt stated, I'm feeling depressed about my situation and not knowing where to go. I'm going to call my sister . Pt denies SI/HI/VH/AH. DC CIWA. Continue phenobarbital taper. Start Ativan taper. 12/21: Pt continues to report feeling anxious and depressed today; pt stated, I'm just worried about where I'm going to go and whats doing to happen . Pt denies SI/HI/VH/AH. 12/22: Active on unit, social with peers. attending groups. Pt continues to report feeling anxious today; pt stated, I'm waiting to hear if I got into the [facility] . Pt denies SI/HI/VH/AH. Continue current tx plan. 12/23: Active on unit, social with peers. attending groups. Pt continues to report feeling alright today; pt continues to be worried about where he will go after discharge. Pt denies SI/HI/VH/AH. Pt reports sleeping and eating well. Started on Naltrexone 50mg PO daily. Patient educated on: diagnosis, medication risk/benefits, substance abuse and therapeutic strategies Informed Consent: understands Reason for continued inpatient stay Substantial Risk for: med/psych decompensation Time Spent With Patient Time: Total time managing care of this patient today _20___ minutes.
[2023-12-24 08:40] VITALS: BP 113/76; PULSE 78
[2023-12-24] MEDS: Folic Acid 1 MG TABLET PO (08:46)
[2023-12-24] MEDS: Gabapentin 600 MG TABLET PO ×3 (08:46→20:24)
[2023-12-24] MEDS: PHENobarbitaL 15 MG TABLET PO (08:46)
[2023-12-24] MEDS: Multivitamin TABLET 1 TAB PO (08:46)
[2023-12-24] MEDS: buPROPion HCl XL 300 MG TAB.ER.24H PO (08:48)
[2023-12-24] MEDS: LORazepam 1 MG TABLET PO ×2 (08:48→20:24)
[2023-12-24] MEDS: Nicotine 21 MG PATCH.TD24 TRANSDERMA (08:49)
[2023-12-24] MEDS: FLUoxetine HCl 20 MG CAPSULE 40 MG PO (08:49)
[2023-12-24] MEDS: Thiamine HCL 100 MG TABLET PO (08:49)
[2023-12-24] MEDS: hydrOXYzine HCL 25 MG TABLET PO ×2 (11:29→20:24)
[2023-12-24] MEDS: Naltrexone HCl 50 MG TABLET PO (13:19)
[2023-12-24 20:00] VITALS: BP 128/72; PULSE 98; TEMP 36.4; O2SAT 98
[2023-12-24] MEDS: traZODone HCL 100 MG TABLET 300 MG PO (20:24)
[2023-12-25 07:00] VITALS: BMI 20.2
[2023-12-25 07:37] VITALS: BP 98/60; PULSE 67; RESP 18; TEMP 37.1; O2SAT 96
--- NOTE | 2023-12-25 09:04 | P.PNPSI_ITS ---
Subjective Subjective Date of Service: 12/25/23 Reason For Visit: unspec depressive dis, unspec. alcohol dis. Subjective Notes: Conditional Voluntary Interim History: Reviewed with Dr. Mc. Pt reports feeling good today; pt stated, if I don't get into the [facility] than I will try to talk to my brother to see if I can stay with him. I had a long talk with my sister and realized how important I am to them . Pt denies SI/HI/VH/AH. Medication Compliance: Yes Side effects from medications: No Attending Groups: Intermittent Review of Systems Constitutional: Reports as per HPI Eyes: Reports as per HPI Reports as per HPI Cardiovascular: Reports as per HPI Respiratory: Reports as per HPI Gastrointestinal: Reports as per HPI Genitourinary: Reports as per HPI Musculoskeletal: Reports as per HPI Skin/Breast: Reports as per HPI Reports as per HPI Psychiatric: Reports as per HPI Endocrine: Reports as per HPI Hematologic/Lymphatic: Reports as per HPI Allergic/Immunologic: Reports as per HPI Mental Status Exam Mental Status Exam Narrative: Pt is alert and oriented; behavior is cooperative and calm; dressed in casual attire; mood is described as good ; eye contact appropriate; Speech is normal rate, volume and not pressured; thought process is organized and goal directed; Thought content is on tx; otherwise pertinent to relevant topics and without any delusional content, paranoid ideations or grandiosity; denies SI/HI/VH/AH. Diagnostics Vital Signs (24Hr): Vital Signs - 24 hr 12/24/23 20:00 12/25/23 07:37 Temperature 97.6 F 98.7 F Pulse Rate 98 67 Respiratory Rate 18 Blood Pressure 128/72 98/60 Pulse Oximetry 98 96 Oxygen Delivery Method Room Air Room Air BMI result Body Mass Index 19.1 Medications Medications Current Medications Acetaminophen (Acetaminophen 325 Mg Tablet) 650 mg PO Q6H PRN PRN Reason: Headache/Pain Mild Scale (1-3) Last Admin: 12/22/23 21:13 Dose: 650 mg Al Hydroxide/Mg Hydroxide (Magnesium Hydrox/Alum Hydrox 30 Ml Oral.Susp) 30 ml PO Q6H PRN PRN Reason: Heartburn/Nausea Bupropion HCl (Bupropion Hcl Xl 300 Mg Tab.Er.24h) 300 mg PO DAILY [facility] Last Admin: 12/24/23 08:48 Dose: 300 mg Fluoxetine HCl (Fluoxetine Hcl 20 Mg Capsule) 40 mg PO DAILY [facility] Last Admin: 12/24/23 08:49 Dose: 40 mg Folic Acid (Folic Acid 1 Mg Tablet) 1 mg PO DAILY [facility] Last Admin: 12/24/23 08:46 Dose: 1 mg Gabapentin (Gabapentin 600 Mg Tablet) 600 mg PO TID [facility] Last Admin: 12/24/23 20:24 Dose: 600 mg Hydroxyzine HCl (Hydroxyzine Hcl 25 Mg Tablet) 25 mg PO Q6H PRN PRN Reason: Anxiety Last Admin: 12/24/23 20:24 Dose: 25 mg Lorazepam (Lorazepam 0.5 Mg Tablet) 0.5 mg PO BID [facility] Stop: 12/26/23 23:00 Magnesium Hydroxide (Milk Of Magnesia 30 Ml Oral.Susp) 30 ml PO DAILY PRN PRN Reason: Constipation Multivitamins/Vitamin C (Multivitamin Tablet) 1 tab PO DAILY [facility] Last Admin: 12/24/23 08:46 Dose: 1 tab Naltrexone HCl (Naltrexone Hcl 50 Mg Tablet) 50 mg PO DAILY [facility] Last Admin: 12/24/23 13:19 Dose: 50 mg Nicotine (Nicotine 21 Mg Patch.Td24) 21 mg TRANSDERMA DAILY PRN PRN Reason: Nicotine Cravings Last Admin: 12/24/23 08:49 Dose: 21 mg Nicotine Polacrilex (Nicotine Polacrilex 2 Mg Gum) 4 mg BUCCAL Q2H PRN PRN Reason: Nicotine Cravings Ondansetron HCl (Ondansetron Odt 8 Mg Tab.Rapdis) 8 mg TRANSLINGU Q8H PRN PRN Reason: Nausea and Vomiting Last Admin: 12/21/23 08:08 Dose: 8 mg Pharmacy Consult (Consult Rx Etoh Phenob Im/Po) 1 each MISCELLANE ONCE PRN; Protocol PRN Reason: Consult order Thiamine HCl (Thiamine Hcl 100 Mg Tablet) 100 mg PO DAILY [facility] Last Admin: 12/24/23 08:49 Dose: 100 mg Trazodone HCl (Trazodone Hcl 100 Mg Tablet) 300 mg PO BEDTIME [facility] Last Admin: 12/24/23 20:24 Dose: 300 mg Allergies Allergies Allergy/AdvReac Type Severity Reaction Status Date / Time No Known Allergies Allergy Verified 12/18/23 00:17 Assessment & Plan Assessment & Plan (1) MDD (major depressive disorder), recurrent episode: Status: Acute Code(s): F33.9 - Major depressive disorder, recurrent, unspecified (2) Alcohol use disorder: Status: Acute Code(s): F10.90 - Alcohol use, unspecified, uncomplicated Plan Patient is a 53 year old male with hx of MDD, alcohol use d/o, and cocaine use d/o who presented to [facility] via ambulance d/t suicidal gesture secondary to overtaking his prescribed psychiatric medications, drinking alcohol and tying a cord around hi neck until he became unconscious. Plan: CV 15 minute safety checks CIWA Continue home medications addiction medicine consult referral to substance abuse program referral to outpatient therapist encourage groups obtain collateral discharge planning 12/18: Pt reports feeling shitty today d/t withdrawal symptoms. Pt stated, I'm just having a lot of anxiety. Other than that I'm okay . Pt denies SI/HI/VH/AH. Keeping to self. Continue with CIWA and phenobarbital taper. 12/19: Pt reports feeling okay today; pt stated, I'm just trying to nap because I didn't sleep too well last night . Pt denies SI/HI/VH/AH. Keeping to self. Continue with CIWA and phenobarbital taper 12/20: Keeping to self. Pt reports feeling anxious and depressed today; pt stated, I'm feeling depressed about my situation and not knowing where to go. I'm going to call my sister . Pt denies SI/HI/VH/AH. DC CIWA. Continue phenobarbital taper. Start Ativan taper. 12/21: Pt continues to report feeling anxious and depressed today; pt stated, I'm just worried about where I'm going to go and whats doing to happen . Pt denies SI/HI/VH/AH. 12/22: Active on unit, social with peers. attending groups. Pt continues to report feeling anxious today; pt stated, I'm waiting to hear if I got into the [facility] . Pt denies SI/HI/VH/AH. Continue current tx plan. 12/23: Active on unit, social with peers. attending groups. Pt continues to report feeling alright today; pt continues to be worried about where he will go after discharge. Pt denies SI/HI/VH/AH. Pt reports sleeping and eating well. Started on Naltrexone 50mg PO daily. Patient educated on: diagnosis, medication risk/benefits, substance abuse and therapeutic strategies Informed Consent: understands Reason for continued inpatient stay Substantial Risk for: med/psych decompensation Time Spent With Patient Time: Total time managing care of this patient today _20___ minutes.
[2023-12-25] MEDS: Multivitamin TABLET 1 TAB PO (09:22)
[2023-12-25] MEDS: LORazepam 0.5 MG TABLET PO ×2 (09:22→22:06)
[2023-12-25] MEDS: FLUoxetine HCl 20 MG CAPSULE 40 MG PO (09:22)
[2023-12-25] MEDS: Naltrexone HCl 50 MG TABLET PO (09:23)
[2023-12-25] MEDS: Gabapentin 600 MG TABLET PO ×3 (09:23→22:05)
[2023-12-25] MEDS: Folic Acid 1 MG TABLET PO (09:23)
[2023-12-25] MEDS: Thiamine HCL 100 MG TABLET PO (09:23)
[2023-12-25] MEDS: buPROPion HCl XL 300 MG TAB.ER.24H PO (09:23)
[2023-12-25] MEDS: Nicotine 21 MG PATCH.TD24 TRANSDERMA (09:50)
[2023-12-25] MEDS: hydrOXYzine HCL 25 MG TABLET PO (15:34)
[2023-12-25 20:00] VITALS: BP 131/82; PULSE 66; RESP 14; TEMP 36.8; O2SAT 98
[2023-12-25] MEDS: traZODone HCL 100 MG TABLET 300 MG PO (22:05)
[2023-12-26 07:45] VITALS: BP 102/68; PULSE 60; RESP 14; TEMP 36.5; O2SAT 97
[2023-12-26] MEDS: LORazepam 0.5 MG TABLET PO ×2 (08:40→22:52)
[2023-12-26] MEDS: Thiamine HCL 100 MG TABLET PO (08:40)
[2023-12-26] MEDS: buPROPion HCl XL 300 MG TAB.ER.24H PO (08:40)
[2023-12-26] MEDS: Folic Acid 1 MG TABLET PO (08:40)
[2023-12-26] MEDS: FLUoxetine HCl 20 MG CAPSULE 40 MG PO (08:40)
[2023-12-26] MEDS: Multivitamin TABLET 1 TAB PO (08:41)
[2023-12-26] MEDS: Naltrexone HCl 50 MG TABLET PO (08:41)
[2023-12-26] MEDS: Gabapentin 600 MG TABLET PO (08:41)
[2023-12-26] MEDS: Nicotine 21 MG PATCH.TD24 TRANSDERMA (08:54)
[2023-12-26] MEDS: Gabapentin 600 MG TABLET 900 MG PO (16:17)
--- NOTE | 2023-12-26 16:31 | PC.NURSE ---
Sosa reported having urges to harm self without a plan to act on it. Rm Hernandez MD made aware.
--- NOTE | 2023-12-26 17:11 | HO.PSYCHPN ---
Subjective Subjective Date of Service: 12/26/23 Reason For Visit: unspec depressive dis, unspec. alcohol dis. Interim History: calm, cooperative. c/o neuropathic pain, agrees to increase gabapentin. reviewed ativan taper. plan to discharge to [facility] on friday. per staff, moderate anx/dep. napping. c/o restless legs. visible tremors. taking meds. slept 8 hours. [facility] phone screen today, will take him friday. Mental Status Exam Mental Status Exam Narrative: Pt is alert and oriented; behavior is cooperative and calm; dressed in casual attire; mood is described as good ; eye contact appropriate; Speech is normal rate, volume and not pressured; thought process is organized and goal directed; Thought content is on tx; otherwise pertinent to relevant topics and without any delusional content, paranoid ideations or grandiosity; no SI/HI/VH/AH expressed. Diagnostics Vital Signs (24Hr): Vital Signs - 24 hr 12/25/23 20:00 12/26/23 07:45 Temperature 98.3 F 97.7 F Pulse Rate 66 60 Respiratory Rate 14 14 Blood Pressure 131/82 102/68 Pulse Oximetry 98 97 Oxygen Delivery Method Room Air Room Air BMI result Body Mass Index 20.2 Medications Medications Current Medications Acetaminophen (Acetaminophen 325 Mg Tablet) 650 mg PO Q6H PRN PRN Reason: Headache/Pain Mild Scale (1-3) Last Admin: 12/22/23 21:13 Dose: 650 mg Al Hydroxide/Mg Hydroxide (Magnesium Hydrox/Alum Hydrox 30 Ml Oral.Susp) 30 ml PO Q6H PRN PRN Reason: Heartburn/Nausea Bupropion HCl (Bupropion Hcl Xl 300 Mg Tab.Er.24h) 300 mg PO DAILY [facility] Last Admin: 12/26/23 08:40 Dose: 300 mg Fluoxetine HCl (Fluoxetine Hcl 20 Mg Capsule) 40 mg PO DAILY [facility] Last Admin: 12/26/23 08:40 Dose: 40 mg Folic Acid (Folic Acid 1 Mg Tablet) 1 mg PO DAILY [facility] Last Admin: 12/26/23 08:40 Dose: 1 mg Gabapentin (Gabapentin 600 Mg Tablet) 900 mg PO TID [facility] Last Admin: 12/26/23 16:17 Dose: 900 mg Hydroxyzine HCl (Hydroxyzine Hcl 25 Mg Tablet) 25 mg PO Q6H PRN PRN Reason: Anxiety Last Admin: 12/25/23 15:34 Dose: 25 mg Lorazepam (Lorazepam 0.5 Mg Tablet) 0.5 mg PO BID [facility] Stop: 12/26/23 23:00 Last Admin: 12/26/23 08:40 Dose: 0.5 mg Magnesium Hydroxide (Milk Of Magnesia 30 Ml Oral.Susp) 30 ml PO DAILY PRN PRN Reason: Constipation Multivitamins/Vitamin C (Multivitamin Tablet) 1 tab PO DAILY [facility] Last Admin: 12/26/23 08:41 Dose: 1 tab Naltrexone HCl (Naltrexone Hcl 50 Mg Tablet) 50 mg PO DAILY [facility] Last Admin: 12/26/23 08:41 Dose: 50 mg Nicotine (Nicotine 21 Mg Patch.Td24) 21 mg TRANSDERMA DAILY PRN PRN Reason: Nicotine Cravings Last Admin: 12/26/23 08:54 Dose: 21 mg Nicotine Polacrilex (Nicotine Polacrilex 2 Mg Gum) 4 mg BUCCAL Q2H PRN PRN Reason: Nicotine Cravings Ondansetron HCl (Ondansetron Odt 8 Mg Tab.Rapdis) 8 mg TRANSLINGU Q8H PRN PRN Reason: Nausea and Vomiting Last Admin: 12/21/23 08:08 Dose: 8 mg Pharmacy Consult (Consult Rx Etoh Phenob Im/Po) 1 each MISCELLANE ONCE PRN; Protocol PRN Reason: Consult order Thiamine HCl (Thiamine Hcl 100 Mg Tablet) 100 mg PO DAILY [facility] Last Admin: 12/26/23 08:40 Dose: 100 mg Trazodone HCl (Trazodone Hcl 100 Mg Tablet) 300 mg PO BEDTIME [facility] Last Admin: 12/25/23 22:05 Dose: 300 mg Allergies Allergies Allergy/AdvReac Type Severity Reaction Status Date / Time No Known Allergies Allergy Verified 12/18/23 00:17 Assessment & Plan Assessment & Plan (1) MDD (major depressive disorder), recurrent episode: Status: Acute Code(s): F33.9 - Major depressive disorder, recurrent, unspecified (2) Alcohol use disorder: Status: Acute Code(s): F10.90 - Alcohol use, unspecified, uncomplicated Plan Patient is a 53 year old male with hx of MDD, alcohol use d/o, and cocaine use d/o who presented to [facility] via ambulance d/t suicidal gesture secondary to overtaking his prescribed psychiatric medications, drinking alcohol and tying a cord around hi neck until he became unconscious. Plan: CV 15 minute safety checks CIWA Continue home medications addiction medicine consult referral to substance abuse program referral to outpatient therapist encourage groups obtain collateral discharge planning 12/18: Pt reports feeling shitty today d/t withdrawal symptoms. Pt stated, I'm just having a lot of anxiety. Other than that I'm okay . Pt denies SI/HI/VH/AH. Keeping to self. Continue with CIWA and phenobarbital taper. 12/19: Pt reports feeling okay today; pt stated, I'm just trying to nap because I didn't sleep too well last night . Pt denies SI/HI/VH/AH. Keeping to self. Continue with CIWA and phenobarbital taper 12/20: Keeping to self. Pt reports feeling anxious and depressed today; pt stated, I'm feeling depressed about my situation and not knowing where to go. I'm going to call my sister . Pt denies SI/HI/VH/AH. DC CIWA. Continue phenobarbital taper. Start Ativan taper. 12/21: Pt continues to report feeling anxious and depressed today; pt stated, I'm just worried about where I'm going to go and whats doing to happen . Pt denies SI/HI/VH/AH. 12/22: Active on unit, social with peers. attending groups. Pt continues to report feeling anxious today; pt stated, I'm waiting to hear if I got into the [facility] . Pt denies SI/HI/VH/AH. Continue current tx plan. 12/23: Active on unit, social with peers. attending groups. Pt continues to report feeling alright today; pt continues to be worried about where he will go after discharge. Pt denies SI/HI/VH/AH. Pt reports sleeping and eating well. Started on Naltrexone 50mg PO daily. 12/25: increase gabapentin to 900 TID. taper ativan. stable. discharge to [facility] friday. Reason for continued inpatient stay Substantial Risk for: inability to function and rapid decompensation Time Spent With Patient Time: Total time managing care of this patient today __25__ minutes.
[2023-12-26 21:58] VITALS: BP 114/76; PULSE 67; RESP 18; TEMP 36.3; O2SAT 98
[2023-12-26] MEDS: Gabapentin 300 MG CAPSULE 900 MG PO (22:53)
[2023-12-26] MEDS: traZODone HCL 100 MG TABLET 300 MG PO (22:53)
--- NOTE | 2023-12-27 08:17 | HO.PSYCHPN ---
Subjective Subjective Date of Service: 12/27/23 Reason For Visit: unspec depressive dis, unspec. alcohol dis. Interim History: patient reports feeling like he is not ready for the [facility] on Friday. Reports having thoughts of self-harm (been present for many years). Acknowledges he does feel safe here and that is less than on admission. Tearful when discussing potential for discharge. Reports he would prefer going to [facility] program as he went there before and would like to be as side of this area and away from [place] where temptation might be higher. Reports feeling more anxious and depressed. No SI. No HI or psychosis. Discuss both medication and non medication approaches to mood and also intermittent thoughts of self-harm which have been present for a number of years and the idea of coping skills etc.. Sleep okay. Medication Compliance: Yes Side effects from medications: No Attending Groups: Yes Review of Systems Acute medical concerns: No Review of Systems Review of Systems nothing acute Mental Status Exam Mental Status Exam Narrative: Pt is alert and oriented; behavior is cooperative and calm; dressed in casual attire; mood is described as anxious ; eye contact appropriate; Speech is normal rate, volume and not pressured; thought process is organized and goal directed; Thought content is on tx and thoughts of self harm (years, not acute); otherwise pertinent to relevant topics and without any delusional content, paranoid ideations or grandiosity; no SI/HI/VH/AH expressed. Diagnostics Vital Signs (24Hr): Vital Signs - 24 hr 12/26/23 21:58 Temperature 97.4 F Pulse Rate 67 Respiratory Rate 18 Blood Pressure 114/76 Pulse Oximetry 98 Oxygen Delivery Method Room Air BMI result Body Mass Index 20.2 Medications Medications Current Medications Acetaminophen (Acetaminophen 325 Mg Tablet) 650 mg PO Q6H PRN PRN Reason: Headache/Pain Mild Scale (1-3) Last Admin: 12/22/23 21:13 Dose: 650 mg Al Hydroxide/Mg Hydroxide (Magnesium Hydrox/Alum Hydrox 30 Ml Oral.Susp) 30 ml PO Q6H PRN PRN Reason: Heartburn/Nausea Bupropion HCl (Bupropion Hcl Xl 300 Mg Tab.Er.24h) 300 mg PO DAILY [facility] Last Admin: 12/26/23 08:40 Dose: 300 mg Fluoxetine HCl (Fluoxetine Hcl 20 Mg Capsule) 40 mg PO DAILY [facility] Last Admin: 12/26/23 08:40 Dose: 40 mg Folic Acid (Folic Acid 1 Mg Tablet) 1 mg PO DAILY [facility] Last Admin: 12/26/23 08:40 Dose: 1 mg Gabapentin (Gabapentin 300 Mg Capsule) 900 mg PO TID [facility] Last Admin: 12/26/23 22:53 Dose: 900 mg Hydroxyzine HCl (Hydroxyzine Hcl 25 Mg Tablet) 25 mg PO Q6H PRN PRN Reason: Anxiety Last Admin: 12/25/23 15:34 Dose: 25 mg Lorazepam (Lorazepam 0.5 Mg Tablet) 0.5 mg PO BEDTIME [facility] Stop: 12/28/23 21:01 Last Admin: 12/26/23 22:52 Dose: 0.5 mg Magnesium Hydroxide (Milk Of Magnesia 30 Ml Oral.Susp) 30 ml PO DAILY PRN PRN Reason: Constipation Multivitamins/Vitamin C (Multivitamin Tablet) 1 tab PO DAILY [facility] Last Admin: 12/26/23 08:41 Dose: 1 tab Naltrexone HCl (Naltrexone Hcl 50 Mg Tablet) 50 mg PO DAILY [facility] Last Admin: 12/26/23 08:41 Dose: 50 mg Nicotine (Nicotine 21 Mg Patch.Td24) 21 mg TRANSDERMA DAILY PRN PRN Reason: Nicotine Cravings Last Admin: 12/26/23 08:54 Dose: 21 mg Nicotine Polacrilex (Nicotine Polacrilex 2 Mg Gum) 4 mg BUCCAL Q2H PRN PRN Reason: Nicotine Cravings Ondansetron HCl (Ondansetron Odt 8 Mg Tab.Rapdis) 8 mg TRANSLINGU Q8H PRN PRN Reason: Nausea and Vomiting Last Admin: 12/21/23 08:08 Dose: 8 mg Pharmacy Consult (Consult Rx Etoh Phenob Im/Po) 1 each MISCELLANE ONCE PRN; Protocol PRN Reason: Consult order Thiamine HCl (Thiamine Hcl 100 Mg Tablet) 100 mg PO DAILY [facility] Last Admin: 12/26/23 08:40 Dose: 100 mg Trazodone HCl (Trazodone Hcl 100 Mg Tablet) 300 mg PO BEDTIME [facility] Last Admin: 12/26/23 22:53 Dose: 300 mg Allergies Allergies Allergy/AdvReac Type Severity Reaction Status Date / Time No Known Allergies Allergy Verified 12/18/23 00:17 Assessment & Plan Assessment & Plan (1) MDD (major depressive disorder), recurrent episode: Status: Acute Code(s): F33.9 - Major depressive disorder, recurrent, unspecified (2) Alcohol use disorder: Status: Acute Code(s): F10.90 - Alcohol use, unspecified, uncomplicated Plan Patient is a 53 year old male with hx of MDD, alcohol use d/o, and cocaine use d/o who presented to [facility] via ambulance d/t suicidal gesture secondary to overtaking his prescribed psychiatric medications, drinking alcohol and tying a cord around hi neck until he became unconscious. Plan: CV 15 minute safety checks CIWA Continue home medications addiction medicine consult referral to substance abuse program referral to outpatient therapist encourage groups obtain collateral discharge planning 12/18: Pt reports feeling shitty today d/t withdrawal symptoms. Pt stated, I'm just having a lot of anxiety. Other than that I'm okay . Pt denies SI/HI/VH/AH. Keeping to self. Continue with CIWA and phenobarbital taper. 12/19: Pt reports feeling okay today; pt stated, I'm just trying to nap because I didn't sleep too well last night . Pt denies SI/HI/VH/AH. Keeping to self. Continue with CIWA and phenobarbital taper 12/20: Keeping to self. Pt reports feeling anxious and depressed today; pt stated, I'm feeling depressed about my situation and not knowing where to go. I'm going to call my sister . Pt denies SI/HI/VH/AH. DC CIWA. Continue phenobarbital taper. Start Ativan taper. 12/21: Pt continues to report feeling anxious and depressed today; pt stated, I'm just worried about where I'm going to go and whats doing to happen . Pt denies SI/HI/VH/AH. 12/22: Active on unit, social with peers. attending groups. Pt continues to report feeling anxious today; pt stated, I'm waiting to hear if I got into the [facility] . Pt denies SI/HI/VH/AH. Continue current tx plan. 12/23: Active on unit, social with peers. attending groups. Pt continues to report feeling alright today; pt continues to be worried about where he will go after discharge. Pt denies SI/HI/VH/AH. Pt reports sleeping and eating well. Started on Naltrexone 50mg PO daily. 12/25: increase gabapentin to 900 TID. taper ativan. stable. [facility] fr[facility]. 12/27/2023: feeling like he is not ready for the [facility] on Friday. Reports having thoughts of self-harm (been present for many years.). Prefer going to [facility] program as he went there before and would like to be as side of this area and away from [place] where temptation might be higher. Reports feeling more anxious and depressed. Will increase Prozac to 60 mg otherwise no changes. Discuss both medication and non medication approaches to mood and also intermittent thoughts of self-harm which have been present for a number of years and the idea of coping skills etc. Reason for continued inpatient stay Substantial Risk for: harm to self Time Spent With Patient Time: Total time managing care of this patient today ____ minutes.
[2023-12-27 08:32] VITALS: BP 116/72; PULSE 74; RESP 18; TEMP 36.4; O2SAT 97
[2023-12-27] MEDS: Multivitamin TABLET 1 TAB PO (08:33)
[2023-12-27] MEDS: Thiamine HCL 100 MG TABLET PO (08:33)
[2023-12-27] MEDS: buPROPion HCl XL 300 MG TAB.ER.24H PO (08:33)
[2023-12-27] MEDS: Nicotine 21 MG PATCH.TD24 TRANSDERMA (08:33)
[2023-12-27] MEDS: Naltrexone HCl 50 MG TABLET PO (08:33)
[2023-12-27] MEDS: FLUoxetine HCl 20 MG CAPSULE 40 MG PO (08:34)
[2023-12-27] MEDS: Gabapentin 300 MG CAPSULE 900 MG PO ×3 (08:34→22:46)
[2023-12-27] MEDS: Folic Acid 1 MG TABLET PO (08:34)
[2023-12-27 19:12] VITALS: BP 119/91; PULSE 77; RESP 16; TEMP 36.6; O2SAT 97
[2023-12-27] MEDS: traZODone HCL 100 MG TABLET 300 MG PO (22:46)
[2023-12-27] MEDS: LORazepam 0.5 MG TABLET PO (22:46)
[2023-12-27] MEDS: Acetaminophen 325 MG TABLET 650 MG PO (22:47)
[2023-12-28 07:15] VITALS: BP 116/57; PULSE 68; RESP 22; TEMP 36.4; O2SAT 95
[2023-12-28] MEDS: Nicotine 21 MG PATCH.TD24 TRANSDERMA (09:01)
[2023-12-28] MEDS: Naltrexone HCl 50 MG TABLET PO (09:02)
[2023-12-28] MEDS: buPROPion HCl XL 300 MG TAB.ER.24H PO (09:02)
[2023-12-28] MEDS: Thiamine HCL 100 MG TABLET PO (09:02)
[2023-12-28] MEDS: Folic Acid 1 MG TABLET PO (09:03)
[2023-12-28] MEDS: Gabapentin 300 MG CAPSULE 900 MG PO ×3 (09:03→22:10)
[2023-12-28] MEDS: FLUoxetine HCl 20 MG CAPSULE 60 MG PO (09:03)
[2023-12-28] MEDS: Multivitamin TABLET 1 TAB PO (09:03)
--- NOTE | 2023-12-28 10:31 | HO.PSYCHPN ---
Subjective Subjective Date of Service: 12/28/23 Reason For Visit: unspec depressive dis, unspec. alcohol dis. Interim History: Still feels like he is uncertain around discharge and fearful of going to the [facility] versus [facility] for fear of relapse potential. Ongoing self harm ideas- utilizes [place] as distraction and gets less as days goes on. Was asking if he went to the [facility] and it didn't work out would he be able to leave there for [facility] should a bed become available ie future planning/oriented. Continues to feel safe in hospital. No SI. No HI or psychosis. Discuss both medication and non medication approaches to mood and also intermittent thoughts of self-harm which have been present for a number of years and the idea of coping skills etc.. Sleep okay. Medication Compliance: Yes Side effects from medications: No Attending Groups: Yes Review of Systems Acute medical concerns: No Review of Systems Review of Systems nothing acute Mental Status Exam Mental Status Exam Narrative: Pt is alert and oriented; behavior is cooperative and calm; dressed in casual attire; mood is described as anxious ; eye contact appropriate; Speech is normal rate, volume and not pressured; thought process is organized and goal directed; Thought content is on tx and thoughts of self harm (years, not acute); otherwise pertinent to relevant topics and without any delusional content, paranoid ideations or grandiosity; no SI/HI/VH/AH expressed. Diagnostics Vital Signs (24Hr): Vital Signs - 24 hr 12/27/23 19:12 12/28/23 07:15 Temperature 97.9 F 97.5 F Pulse Rate 77 68 Respiratory Rate 16 22 H Blood Pressure 119/91 H 116/57 L Pulse Oximetry 97 95 Oxygen Delivery Method Room Air Room Air BMI result Body Mass Index 20.2 Medications Medications Current Medications Acetaminophen (Acetaminophen 325 Mg Tablet) 650 mg PO Q6H PRN PRN Reason: Headache/Pain Mild Scale (1-3) Last Admin: 12/27/23 22:47 Dose: 650 mg Al Hydroxide/Mg Hydroxide (Magnesium Hydrox/Alum Hydrox 30 Ml Oral.Susp) 30 ml PO Q6H PRN PRN Reason: Heartburn/Nausea Bupropion HCl (Bupropion Hcl Xl 300 Mg Tab.Er.24h) 300 mg PO DAILY [facility] Last Admin: 12/28/23 09:02 Dose: 300 mg Fluoxetine HCl (Fluoxetine Hcl 20 Mg Capsule) 60 mg PO DAILY [facility] Last Admin: 12/28/23 09:04 Dose: Not Given Folic Acid (Folic Acid 1 Mg Tablet) 1 mg PO DAILY [facility] Last Admin: 12/28/23 09:03 Dose: 1 mg Gabapentin (Gabapentin 300 Mg Capsule) 900 mg PO TID [facility] Last Admin: 12/28/23 09:03 Dose: 900 mg Hydroxyzine HCl (Hydroxyzine Hcl 25 Mg Tablet) 25 mg PO Q6H PRN PRN Reason: Anxiety Last Admin: 12/25/23 15:34 Dose: 25 mg Lorazepam (Lorazepam 0.5 Mg Tablet) 0.5 mg PO BEDTIME [facility] Stop: 12/28/23 21:01 Last Admin: 12/27/23 22:46 Dose: 0.5 mg Magnesium Hydroxide (Milk Of Magnesia 30 Ml Oral.Susp) 30 ml PO DAILY PRN PRN Reason: Constipation Multivitamins/Vitamin C (Multivitamin Tablet) 1 tab PO DAILY [facility] Last Admin: 12/28/23 09:03 Dose: 1 tab Naltrexone HCl (Naltrexone Hcl 50 Mg Tablet) 50 mg PO DAILY [facility] Last Admin: 12/28/23 09:02 Dose: 50 mg Nicotine (Nicotine 21 Mg Patch.Td24) 21 mg TRANSDERMA DAILY PRN PRN Reason: Nicotine Cravings Last Admin: 12/28/23 09:01 Dose: 21 mg Nicotine Polacrilex (Nicotine Polacrilex 2 Mg Gum) 4 mg BUCCAL Q2H PRN PRN Reason: Nicotine Cravings Ondansetron HCl (Ondansetron Odt 8 Mg Tab.Rapdis) 8 mg TRANSLINGU Q8H PRN PRN Reason: Nausea and Vomiting Last Admin: 12/21/23 08:08 Dose: 8 mg Pharmacy Consult (Consult Rx Etoh Phenob Im/Po) 1 each MISCELLANE ONCE PRN; Protocol PRN Reason: Consult order Thiamine HCl (Thiamine Hcl 100 Mg Tablet) 100 mg PO DAILY [facility] Last Admin: 12/28/23 09:02 Dose: 100 mg Trazodone HCl (Trazodone Hcl 100 Mg Tablet) 300 mg PO BEDTIME [facility] Last Admin: 12/27/23 22:46 Dose: 300 mg Allergies Allergies Allergy/AdvReac Type Severity Reaction Status Date / Time No Known Allergies Allergy Verified 12/18/23 00:17 Assessment & Plan Assessment & Plan (1) MDD (major depressive disorder), recurrent episode: Status: Acute Code(s): F33.9 - Major depressive disorder, recurrent, unspecified (2) Alcohol use disorder: Status: Acute Code(s): F10.90 - Alcohol use, unspecified, uncomplicated Plan Patient is a 53 year old male with hx of MDD, alcohol use d/o, and cocaine use d/o who presented to [facility] via ambulance d/t suicidal gesture secondary to overtaking his prescribed psychiatric medications, drinking alcohol and tying a cord around hi neck until he became unconscious. Plan: CV 15 minute safety checks CIWA Continue home medications addiction medicine consult referral to substance abuse program referral to outpatient therapist encourage groups obtain collateral discharge planning 12/18: Pt reports feeling shitty today d/t withdrawal symptoms. Pt stated, I'm just having a lot of anxiety. Other than that I'm okay . Pt denies SI/HI/VH/AH. Keeping to self. Continue with CIWA and phenobarbital taper. 12/19: Pt reports feeling okay today; pt stated, I'm just trying to nap because I didn't sleep too well last night . Pt denies SI/HI/VH/AH. Keeping to self. Continue with CIWA and phenobarbital taper 12/20: Keeping to self. Pt reports feeling anxious and depressed today; pt stated, I'm feeling depressed about my situation and not knowing where to go. I'm going to call my sister . Pt denies SI/HI/VH/AH. DC CIWA. Continue phenobarbital taper. Start Ativan taper. 12/21: Pt continues to report feeling anxious and depressed today; pt stated, I'm just worried about where I'm going to go and whats doing to happen . Pt denies SI/HI/VH/AH. 12/22: Active on unit, social with peers. attending groups. Pt continues to report feeling anxious today; pt stated, I'm waiting to hear if I got into the [facility] . Pt denies SI/HI/VH/AH. Continue current tx plan. 12/23: Active on unit, social with peers. attending groups. Pt continues to report feeling alright today; pt continues to be worried about where he will go after discharge. Pt denies SI/HI/VH/AH. Pt reports sleeping and eating well. Started on Naltrexone 50mg PO daily. 12/25: increase gabapentin to 900 TID. taper ativan. stable. discharge to [facility] friday. 12/27/2023: feeling like he is not ready for the [facility] on Friday. Reports having thoughts of self-harm (been present for many years.). Prefer going to [facility] program as he went there before and would like to be as side of this area and away from [place] where temptation might be higher. Reports feeling more anxious and depressed. Will increase Prozac to 60 mg otherwise no changes. Discuss both medication and non medication approaches to mood and also intermittent thoughts of self-harm which have been present for a number of years and the idea of coping skills etc. 12/28/23: no changes Reason for continued inpatient stay Substantial Risk for: rapid decompensation Time Spent With Patient Time: Total time managing care of this patient today ____ minutes.
[2023-12-28 20:00] VITALS: BP 144/87; PULSE 73; RESP 16; TEMP 36.8; O2SAT 99
[2023-12-28] MEDS: traZODone HCL 100 MG TABLET 300 MG PO (22:10)
[2023-12-28] MEDS: LORazepam 0.5 MG TABLET PO (22:11)
[2023-12-29 07:45] VITALS: BP 111/75; PULSE 64; RESP 14; TEMP 36.4; O2SAT 96
[2023-12-29] MEDS: FLUoxetine HCl 20 MG CAPSULE 60 MG PO (08:27)
[2023-12-29] MEDS: Gabapentin 300 MG CAPSULE 900 MG PO (08:28)
[2023-12-29] MEDS: buPROPion HCl XL 300 MG TAB.ER.24H PO (08:29)
[2023-12-29] MEDS: Thiamine HCL 100 MG TABLET PO (08:29)
[2023-12-29] MEDS: hydrOXYzine HCL 25 MG TABLET PO (08:29)
[2023-12-29] MEDS: Multivitamin TABLET 1 TAB PO (08:29)
[2023-12-29] MEDS: Naltrexone HCl 50 MG TABLET PO (08:29)
[2023-12-29] MEDS: Folic Acid 1 MG TABLET PO (08:29)
--- NOTE | 2023-12-29 10:14 | P.DS_ITS ---
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 DS: Diagnosis Discharge Diagnosis (1) MDD (major depressive disorder), recurrent episode: Status: Inactive (2) Alcohol use disorder: Status: Acute DS: Medications Discharge Medications Home Medications: Previous Rx's ?Medication ?Instructions ?Recorded bupropion HCl 300 mg 24 hr tablet, 300 mg PO DAILY 30 days #30 tabs 12/29/23 extended release fluoxetine 20 mg capsule 60 mg (3 x 20 mg) PO DAILY 30 days 12/29/23 #90 caps folic acid 1 mg tablet 1 mg PO DAILY 30 days #30 tabs 12/29/23 gabapentin 300 mg capsule 900 mg (3 x 300 mg) PO TID 30 days 12/29/23 #270 caps hydroxyzine HCl 25 mg tablet 25 mg PO Q6H PRN Anxiety 30 days 12/29/23 #60 tabs multivitamin (Daily-Geo tablet) 1 tab PO DAILY 30 days #30 tabs 12/29/23 naltrexone 50 mg tablet 50 mg PO DAILY 30 days #30 tabs 12/29/23 nicotine 21 mg/24 hr daily 21 mg transdermal DAILY PRN 12/29/23 transdermal patch Nicotine Cravings 28 days #28 ea thiamine mononitrate (vit B1) 100 100 mg PO DAILY 30 days #30 tabs 12/29/23 mg tablet trazodone 300 mg tablet 300 mg PO BEDTIME 30 days #30 tabs 12/29/23 Mental Status Exam Mental Status Exam Narrative: Pt is alert and oriented; behavior is cooperative and calm; dressed in casual attire; mood is described as prety well down but i'm trying to pick myself u ; eye contact appropriate; Speech is normal rate, volume and not pressured; thought process is organized and goal directed; Thought content is on tx; otherwise pertinent to relevant topics and without any delusional content, paranoid ideations or grandiosity; no SI/HI/VH/AH at the time of discharge. DS: Summary Hospital Course Hospital Course: per 12/17 admission note: Patient is a 53 year old male with hx of MDD, alcohol use d/o, and cocaine use d/o who presented to [facility] via ambulance d/t suicidal gesture secondary to overtaking his prescribed psychiatric medications, drinking alcohol and tying a cord around hi neck until he became unconscious. Per crisis report, patient's sister called for a wellness check. Upon arrival Sosa was found unconscious in his bathroom BAL to the ED was 255 on 12/16/23, patient did not require medical intervention. During crisis evaluation patient presented calm and cooperative and insightful regarding his need for recovery. Patient reported passive suicide ideation with no plan. This is patient's 1st inpatient psychiatric admission. Patient reports he has been drinking since the age of 13. He also reports past cocaine and heroin use. Utox positive for cannabinoids and alcohol. Patient is being evicted from his apartment on December 22 2023. During admission assessment, pt presents alert, oriented, calm and cooperative. Pt reports feeling depressed ; pt stated, I tried to commit suicide when I was drinking. Life sucks right now. I'm unemployed. I have no place to go. I got evicted from my apartment and I can't afford rent. I was drinking and felt good then I just wanted to end the cycle . Pt reports he is medication compliant and he feels like my meds help me but alcohol is the problem . Pt denies SI/HI/VH/AH. Pt reports he would like a referral to a substance abuse program; pt stated, I went to [facility] two years ago and I'd like to try to get into there again . Pt reports he began drinking daily a month ago (12 pack of beer and a sleeve a nips daily) d/t boredom but was sober for 9 months prior by just stopping cold turkey . pt denies hx of withdrawal seizures. Pt reports hx of cocaine use but has not used in 2 years; smoke marijuana daily. Pt reports this is his first inpatient psychiatric hospitalization; he reports he has been to detox 3 times; last detox was 2 years ago. Past Psychiatric History: 1st inpatient psychiatric admission; states he overdosed on his prescription medication 10 years ago but did not receive medical treatment. 3 detox admissions last one was 2 years ago. does not have a therapist outpatient prescriber: Jammal Luis Carlos Hedrington, [employer] Medical Evaluation Reviewed: Yes [facility] Medical History Mood disorder Alcohol use disorder Family History: denies Social History: Homeless, single, no children, finished 11th grade (did not obtain GED), unemployed. Substance History: hx of cocaine and heroin use. last used 2 years ago. Smokes marijuana daily. Drinking alcohol daily(12 pack of beer and sleeve of nips) for past month; was sober for 9 months prior. Trauma History: denies Precis: Patient is a 53 year old male with hx of MDD, alcohol use d/o, and cocaine use d/o who presented to [facility] via ambulance d/t suicidal gesture secondary to overtaking his prescribed psychiatric medications, drinking alcohol and tying a cord around his neck until he became unconscious. 12/17: CV. 15 minute safety checks. CIWA. Continue home medications. addiction medicine consult. referral to substance abuse program. referral to outpatient therapist. encourage groups. obtain collateral. discharge planning 12/18: Pt reports feeling shitty today d/t withdrawal symptoms. Pt stated, I'm just having a lot of anxiety. Other than that I'm okay . Pt denies SI/HI/VH/AH. Keeping to self. Continue with CIWA and phenobarbital taper. 12/19: Pt reports feeling okay today; pt stated, I'm just trying to nap because I didn't sleep too well last night . Pt denies SI/HI/VH/AH. Keeping to self. Continue with CIWA and phenobarbital taper 12/20: Keeping to self. Pt reports feeling anxious and depressed today; pt stated, I'm feeling depressed about my situation and not knowing where to go. I'm going to call my sister . Pt denies SI/HI/VH/AH. DC CIWA. Continue phenobarbital taper. Start Ativan taper. 12/21: Pt continues to report feeling anxious and depressed today; pt stated, I'm just worried about where I'm going to go and whats doing to happen . Pt denies SI/HI/VH/AH. 12/22: Active on unit, social with peers. attending groups. Pt continues to report feeling anxious today; pt stated, I'm waiting to hear if I got into the [facility] . Pt denies SI/HI/VH/AH. Continue current tx plan. 12/23: Active on unit, social with peers. attending groups. Pt continues to report feeling alright today; pt continues to be worried about where he will go after discharge. Pt denies SI/HI/VH/AH. Pt reports sleeping and eating well. Started on Naltrexone 50mg PO daily. 12/25: increase gabapentin to 900 TID. taper ativan. stable. discharge to [facility] friday. 12/27/2023: feeling like he is not ready for the [facility] on Friday. Reports having thoughts of self-harm (been present for many years.). Prefer going to [facility] program as he went there before and would like to be as side of this area and away from [place] where temptation might be higher. Reports feeling more anxious and depressed. Will increase Prozac to 60 mg otherwise no changes. Discuss both medication and non medication approaches to mood and also intermittent thoughts of self-harm which have been present for a number of years and the idea of coping skills etc. 12/28/23: no changes 12/28: stable, safe. discharged to [facility] as per plan. Time Spent with Patient Time attestation: Total time managing care of this patient today __35__ minutes. Discharge Plan Discharge Anticipated Discharge Date/Time: 12/29/23 10:10 Patient Disposition: Xfer Inpatient Rehab Fac Discharge Diagnosis: Mood Disorder NOS Alcohol Use Disorder Referrals: [facility] [Provider Group] - 1 Week (Patient has no PCP. Added [facility] to EMR.) Discharge Medications: New multivitamin [Daily-Geo] Tablet 1 tab PO DAILY 30 Days Qty: 30 0RF naltrexone 50 mg Tablet 50 mg PO DAILY 30 Days Qty: 30 0RF nicotine 21 mg/24 hr Patch 24 Hour 21 mg transdermal DAILY PRN (Reason: Nicotine Cravings) 28 Days Qty: 28 0RF gabapentin 300 mg Capsule 900 mg PO TID 30 Days Qty: 270 0RF folic acid 1 mg Tablet 1 mg PO DAILY 30 Days Qty: 30 0RF hydroxyzine HCl 25 mg Tablet 25 mg PO Q6H PRN (Reason: Anxiety) 30 Days Qty: 60 0RF fluoxetine 20 mg Capsule 60 mg PO DAILY 30 Days Qty: 90 0RF thiamine mononitrate (vit B1) 100 mg Tablet 100 mg PO DAILY 30 Days Qty: 30 0RF Continued trazodone 300 mg tablet 300 mg PO BEDTIME 30 Days Qty: 30 0RF bupropion HCl 300 mg tablet extended release 24 hr 300 mg PO DAILY 30 Days Qty: 30 0RF Discontinued gabapentin 600 mg tablet 600 mg PO TID fluoxetine 20 mg capsule 40 mg PO DAILY acamprosate 333 mg tablet,delayed release (DR/EC) 666 mg PO TID Patient Comments: pt has not picked up from pharmacy since October 2023 for 30 day supply Discharge Orders: Discharge Order (Routine); Ordered 12/29/23 Ordered By: Rm Hernandez Diet: Advance to usual diet Activity on Discharge: As tolerated Stand Alone Forms: Patient Portal Discharge page, Community Support Print Language: Syriac Care Plan Goals: remain safe, stable, and sober in the outpatient treatment setting Health Concerns: none Plan of Treatment: take medications as prescribed. attend residential rehabilitation program. Assessment: not at imminent risk of harm to self or others due to mental illness treatable in inpatient setting Discharge Date/Time: 12/29/23 10:35
== END 2023-12-29 10:35 | DRG 753 ==
PROVIDERS: Clinical Nurse Specialist Psychiatric/Mental Health, Adult; Admitting Provider Psychiatry & Neurology Psychiatry; Visit Provider Psychiatry & Neurology Psychiatry
DX: F39 Unspecified mood [affective] disorder (principal); F10.90 Alcohol use, unspecified, uncomplicated; F33.9 Major depressive disorder, recurrent, unspecified; F14.90 Cocaine use, unspecified, uncomplicated; F17.210 Nicotine dependence, cigarettes, uncomplicated; Z71.6 Tobacco abuse counseling; Z91.51 Personal history of suicidal behavior; Z79.899 Other long term (current) drug therapy
CPT/HCPCS: 36415; 80061; 82607; 82746; 83036; 83735; 84439; 84443

== ENCOUNTER → 2023-12-17 20:55 | Outpatient (BNV) | payer OTHER, SELFPAY | PROVIDERS: Admitting Provider Psychiatry & Neurology Psychiatry; Visit Provider Student in an Organized Health Care Education/Training Program | DX: Z02.2 Encounter for examination for admission to residential institution (principal); F10.90 Alcohol use, unspecified, uncomplicated; F39 Unspecified mood [affective] disorder | CPT/HCPCS: 99429 ==

== ENCOUNTER → 2023-12-17 20:55 | Outpatient (BNV) | payer OTHER, SELFPAY | PROVIDERS: Admitting Provider Psychiatry & Neurology Psychiatry; Responsible Provider Registered Nurse; Visit Provider Registered Nurse | DX: F33.9 Major depressive disorder, recurrent, unspecified (principal); F10.90 Alcohol use, unspecified, uncomplicated | CPT/HCPCS: 90792; 99231; 99232; 99239 ==